=== PATIENT | female | born 1945 | race Caucasian/White ===

== ENCOUNTER 2018-12-29 15:24 | Inpatient (IN) | payer OTHER ==
[2018-12-29] MEDS ORDERED: ASPIRIN 81 MG CHEWABLE TABLETS PO ONE (15:47)
--- NOTE | 2018-12-29 16:05 | PDOC ---
History of Present Illness - General Chief Complaint: Shortness of Breath Stated Complaint: BREATHING TROUBLE Time Seen by Provider: 12/29/18 15:44 - History of Present Illness Initial Comments: 12/29/18 16:07 The patient is a 73 year old female with a history of HTN, HLD, DM, Ovarian CA who presents for evaluation of shortness of breath. The patient is accompanied by family who assists in providing the history. They note that the patient has been experiencing a 1 month history of worsening shortness of breath. They noted that patient acutely worsened over the past 5 days with an associated productive cough prompting her presentation to the ED for further evaluation. They note that the patient also has a wound to her left lower extremity that has been draining purulent fluid as well. They reports subjective fevers at home but otherwise denies chest pain, nausea, vomiting, abdominal pain, or changes with urination or bowel movements. Past History - Past Medical History Allergies/Adverse Reactions: Allergies Allergy/AdvReac Type Severity Reaction Status Date / Time codeine [Codeine] Allergy Verified 10/01/12 12:47 iodine Allergy Verified 10/01/12 12:47 Home Medications: Ambulatory Orders Aspirin Coated [Ecotrin -] 81 mg PO DAILY 09/30/12 Fluoxetine HCl [Prozac -] 10 mg PO DAILY 09/30/12 Glipizide [Glipizide ER] 10 mg PO BID 09/30/12 Hydrochlorothiazide [Hctz -] 25 mg PO DAILY 09/30/12 Labetalol HCl 200 mg PO BID 09/30/12 Rosuvastatin Calcium [Crestor] 10 mg PO DAILY 09/30/12 metFORMIN HCL [Glucophage -] 500 mg PO BID 09/30/12 Anemia: No Asthma: Yes Cancer: Yes (ovarian) Cardiac Disorders: No CVA: No COPD: No CHF: No Dementia: No Diabetes: Yes GI Disorders: No Disorders: No HTN: Yes Hypercholesterolemia: Yes Liver Disease: No Seizures: No Thyroid Disease: No - Surgical History Abdominal Surgery: No Appendectomy: No Cardiac Surgery: No Cholecystectomy: Yes Lung Surgery: No Neurologic Surgery: No Orthopedic Surgery: No - Suicide/Smoking/Psychosocial Hx Smoking History: Never smoked Have you smoked in the past 12 months: No Information on smoking cessation initiated: No Hx Alcohol Use: No Drug/Substance Use Hx: No Substance Use Type: None Hx Substance Use Treatment: No Review of Systems - Review of Systems Comments:: 12/29/18 16:19 Constitutional: fevers, No chills, fatigue, malaise HEENT: No Rhinorrhea, nasal congestion, visual changes Cardiovascular: No chest pain, syncope, palpitations, lightheadedness Respiratory: Productive Cough, SOB, No Hemoptysis, Gastrointestinal: No Abdominal pain, Nausea, Vomiting, Constipation, Diarrhea, Melena Genitourinary: No Dysuria, Frequency, Urgency, Hesitancy, Hematuria, Flank pain Musculoskeletal: No Myalgia, arthralgia Skin: Left lower extremity wound. No rashes, itching, bruising, pallor Neurologic: No Headache, Dizziness, Numbness, Weakness, or Tingling Psychiatric: No Hallucinations. No SI or HI *Physical Exam - Vital Signs Last Vital Signs Temp Pulse Resp BP Pulse Ox 98.5 F 138 H 18 178/69 H 85 L 12/29/18 15:45 12/29/18 15:45 12/29/18 15:45 12/29/18 15:45 12/29/18 15:45 - Physical Exam Comments: 12/29/18 16:20 General Appearance: Nourished. No Apparent Distress HEENT: EOMI, GENIE. No Pharyngeal Erythema, Tonsillar Exudate, Tonsillar Erythema Neck: No Cervical Lymphadenopathy Respiratory/Chest: Crackles at the left lung base auscultated on exam. No Wheezing Cardiovascular: Regular Rhythm, Regular Rate. No Murmur, Gallops, Rubs Gastrointestinal/Abdominal: Normal Bowel Sounds, Soft. No Guarding, Rebound, Tenderness Musculoskeletal: No CVA Tenderness Extremity: 2+ edema to the lower extremities bilaterally. Wound to the posterior aspect of the left ankle with some purulent discharge. Normal Capillary Refill Integumentary: Normal Color, Dry, Warm Neurologic: Fully Oriented, Alert, Normal Mood/Affect, Normal Response, ED Treatment Course - LABORATORY CBC & Chemistry Diagram: 12/29/18 16:02 12/29/18 16:02 Medical Decision Making - Medical Decision Making 12/29/18 16:24 The patient is a 73 year old female with a history of HTN, HLD, DM, Ovarian CA who presents for evaluation of shortness of breath. Differential includes but is not limited to: Pneumonia, Sepsis, Wound infection, ACS, Infectious, Metabolic Derangement. Given the patient's history and physical exam, we will obtain a cbc, cmp, troponin, lactate, blood cultures, ua, ekg, chest plain film to evaluate further. We will continue to monitor and reassess while here in the ED. 12/29/18 17:35 CBC is unremarkable. CMP demonstrates a glucose of 400. Lactate is 2.9. Troponin is unremarkable. BNP is 300. Chest plain film demonstrates acute pulmonary edema with congestive features as read by our radiologist. We will treat the patient with lasix as she appears clinically fluid overloaded. We will obtain a chest CTA to evaluate further for PE and pulmonary edema. We discussed the case with Dr. Hardy who accepted the patient for admission. Per the patient and her family, the patient refuses treatment with insulin. We will treat the patient with her night doses for metformin and glipazide for her hyperglycemia. 12/29/18 18:39 Patient has an allergy to iodine and is unable to undergo chest CTA. Will change the order to a non-contrast CT and defer to the inpatient team regarding further work up for PE. *DC/Admit/Observation/Transfer Diagnosis at time of Disposition: Shortness of breath, Tachycardia Pulmonary edema Qualifiers: Chronicity: acute Qualified Code(s): J81.0 - Acute pulmonary edema - Discharge Dispostion Condition at time of disposition: Stable Decision to Admit order: Yes - Referrals - Patient Instructions - Post Discharge Activity
[2018-12-29 16:11] LABS: BASO % 0.8 % (0-2.0); HEMATOCRIT 38.6 % (32.4-45.2); HEMOGLOBIN 12.8 GM/dL (10.7-15.3); LYMPH % 6.1 % (8-40); MCH 28.2 pg (25.7-33.7); MCHC 33.1 g/dl (32.0-36.0); MEAN CELL VOLUME 85.1 fl (80-96); MONO % 3.2 % (3.8-10.2); NEUT % 88.9 % (42.8-82.8); PLATELET COUNT 152 K/MM3 (134-434); RBC 4.54 M/mm3 (3.60-5.2); RDW 14.6 % (11.6-15.6); WHITE BLOOD COUNT 8.3 K/mm3 (4.0-10.0)
[2018-12-29 16:24] LABS: INR 1.02 (0.83-1.09)
[2018-12-29] MEDS ORDERED: FUROSEMIDE 40 MG/4 ML INJECTABLE VIAL IVPUSH ONE (16:44)
[2018-12-29 17:07] LABS: ALBUMIN 3.7 g/dl (3.4-5.0); ALK PHOS 107 U/L (45-117); ANION GAP 8 MMOL/L (8-16); BILIRUBIN,TOTAL 0.8 mg/dL (0.2-1); BLOOD UREA NITROGEN 19 mg/dL (7-18); CALCIUM 8.9 mg/dL (8.5-10.1); CHLORIDE 104 mmol/L (98-107); CO2 28 mmol/L (21-32); MAGNESIUM 1.4 mg/dL (1.8-2.4); N-TERMINAL BNP 353.9 pg/ml (5-125); POTASSIUM 3.8 mmol/L (3.5-5.1); SGOT/AST 15 U/L (15-37); SGPT/ALT 19 U/L (13-61); SODIUM 141 mmol/L (136-145); TOT PROT 6.8 g/dl (6.4-8.2)
[2018-12-29] MEDS ORDERED: FUROSEMIDE 40 MG/4 ML INJECTABLE VIAL ONE (17:15)
[2018-12-29 17:20] LABS: GLUCOSE,RANDOM 404 mg/dL (74-106)
[2018-12-29] MEDS ORDERED: glipiZIDE 10 MG TABLET (FP) PO ONE (17:27)
[2018-12-29] MEDS ORDERED: metFORMIN HCL 500 MG TABLET (FP) PO ONE (17:27)
--- NOTE | 2018-12-29 17:32 | PDOC ---
Documentation entered by Gabriella Resendiz SCRIBE, acting as scribe for Elvira Chacon MD. Elvira Chacon MD: This documentation has been prepared by the Martín tinsley Amanda, SCRIBE, under my direction and personally reviewed by me in its entirety. I confirm that the documentation accurately reflects all work, treatment, procedures, and medical decision making performed by me. Attending Attestation - Resident Resident Name: Dillan Gatyan - ED Attending Attestation I have performed the following: I have examined & evaluated the patient, The case was reviewed & discussed with the resident, I agree w/resident's findings & plan, Exceptions are as noted - HPI HPI: 12/29/18 17:12 The patient is a 73 year old female with a significant past medical history of HTN, HLD, DM, Ovarian CA who presents for evaluation of shortness of breath over the past 5 days with an associated productive cough and subjective fevers. The family at bedside reports that the patient also has a wound to her left lower extremity that has been draining purulent fluid. The patient denies chest pain, nausea, vomiting, abdominal pain, or changes with urination or bowel movements. - Physicial Exam PE: 12/29/18 17:14 GENERAL: The patient is in no acute distress. HEAD: Normal with no signs of trauma. EYES: PERRLA, EOMI, sclera anicteric, conjunctiva clear. ENT: Ears normal, nares patent, oropharynx clear without exudates. Moist mucous membranes. NECK: Normal range of motion, supple without lymphadenopathy, JVD, or masses. LUNGS: (+)Crackles at the left lung base. Breath sounds equal, No wheezes, HEART:Regular rate and rhythm, normal S1 and S2 without murmur, rub or gallop. ABDOMEN: Soft, nontender, normoactive bowel sounds. No guarding, no rebound. No masses palpable. EXTREMITIES: (+) 2+ edema to the lower extremities bilaterally. Normal range of motion, No clubbing or cyanosis. No erythema, or tenderness. NEUROLOGICAL: Cranial nerves II through XII grossly intact. Normal speech. No focal neurological deficits. MUSCULOSKELETAL: Back non-tender to palpation, no CVA tenderness SKIN: (+) Wound to the posterior aspect of the left ankle with some purulent discharge. Warm, Dry, normal turgor, no rashes or lesions noted. - Medical Decision Making 12/29/18 16:57 This is a 73 yo F h/o HTN, HLD, DM, morbid obesity who presents to the ER with a complaint of shortness of breath Pt son states she has been short of breath for the past 2 months This has been progressively worsening Pt told her son today that her shortness of breath was now SEVERE and requested to come to the hospital No fevers (+ chills (+) cough with no sputum production Bilateral lower extremity edema Pt unable to ambulate in the home, limited by shortness of breath Laboratory Tests 12/29/18 12/29/18 12/29/18 16:02 16:02 16:02 WBC 8.3 Hgb 12.8 Hct 38.6 Plt Count 152 PT with INR 12.00 INR 1.02 PTT (Actin FS) 33.2 CXR: Cardiomegaly, fluid overloading noted 12/29/18 17:27 Laboratory Tests 12/29/18 12/29/18 16:02 16:14 Sodium 141 Potassium 3.8 Chloride 104 Carbon Dioxide 28 BUN 19 H Creatinine 1.0 Random Glucose 404 H* Lactic Acid 2.9 H* Creatine Kinase 75 Troponin I 0.02 B-Natriuretic Peptide 353.9 H CXR demonstrates fluid overloading Pt labs reflect hyperglycemia, can not give IVF Will do CTA chest to r/o PE and eval for subtle infiltrate 12/29/18 17:32 Repeat EKG: ST rate of 118 bpm, axis nml, intervals nml, no st elevation or depression, t waves upright Admitted to Dr Hardy's service Unable to do CT given iodine allergy Will do CT without contrast
[2018-12-29] MEDS ORDERED: glipiZIDE 5 MG TABLET (FP) ONE (18:06)
[2018-12-29] MEDS ORDERED: metFORMIN HCL 500 MG TABLET (FP) ONE (18:07)
--- NOTE | 2018-12-29 19:38 | HP ---
Admitting History and Physical - Primary Care Physician PCP: Radha Hardy - Admission History of Present Illness: 73 year old female with a history of HTN, HLD, DM, Ovarian CA who presents for evaluation of shortness of breath. The patient is accompanied by family who assists in providing the history. They note that the patient has been experiencing a 1 month history of worsening shortness of breath. They noted that patient acutely worsened over the past 5 days with an associated productive cough prompting her presentation to the ED for further evaluation. They note that the patient also has a wound to her left lower extremity that has been draining purulent fluid as well. They reports subjective fevers at home but otherwise denies chest pain, nausea, vomiting, abdominal pain, or changes with urination or bowel movements. - Past Medical History Cardiovascular: Yes: HTN, Hyperlipdemia Heme/Onc: Yes: Other (ovarian ca) Endocrine: Yes: Diabetes Mellitus - Smoking History Smoking history: Never smoked Have you smoked in the past 12 months: No - Alcohol/Substance Use Hx Alcohol Use: No Home Medications - Allergies Allergies/Adverse Reactions: Allergies Allergy/AdvReac Type Severity Reaction Status Date / Time codeine [Codeine] Allergy Verified 10/01/12 12:47 iodine Allergy Verified 10/01/12 12:47 - Home Medications Home Medications: Ambulatory Orders Aspirin Coated [Ecotrin -] 81 mg PO DAILY 09/30/12 Fluoxetine HCl [Prozac -] 10 mg PO DAILY 09/30/12 Glipizide [Glipizide ER] 10 mg PO BID 09/30/12 Hydrochlorothiazide [Hctz -] 25 mg PO DAILY 09/30/12 Labetalol HCl 200 mg PO BID 09/30/12 Rosuvastatin Calcium [Crestor] 10 mg PO DAILY 09/30/12 metFORMIN HCL [Glucophage -] 500 mg PO BID 09/30/12 Physical Examination Vital Signs: Vital Signs Temperature 98.5 F 12/29/18 15:45 Pulse Rate 110 H 12/29/18 15:47 Respiratory Rate 18 12/29/18 15:45 Blood Pressure 178/69 H 12/29/18 15:45 O2 Sat by Pulse Oximetry (%) 98 12/29/18 18:46 Constitutional: Yes: No Distress HENT: Yes: Atraumatic Neck: Yes: Supple Cardiovascular: Yes: Regular Rate and Rhythm Respiratory: Yes: Rhonchi Gastrointestinal: Yes: Normal Bowel Sounds Extremities: Yes: Other (llex warm and red) Edema: Yes Edema: LUE: 1+, RUE: 1+ Neurological: Yes: Alert, Oriented Labs: CBC, BMP 12/29/18 16:02 12/29/18 16:02 Imaging - Results X-ray: Report Reviewed Ultrasound: Report Reviewed Problem List - Problems (1) HTN (hypertension) Assessment/Plan: monitor continue home meds Code(s): I10 - ESSENTIAL (PRIMARY) HYPERTENSION Qualifiers: Hypertension type: essential hypertension Qualified Code(s): I10 - Essential (primary) hypertension (2) Diabetes Assessment/Plan: bgms home meds Code(s): E11.9 - TYPE 2 DIABETES MELLITUS WITHOUT COMPLICATIONS Qualifiers: Diabetes mellitus type: type 2 (3) Pulmonary edema Assessment/Plan: iv lasix Code(s): J81.1 - CHRONIC PULMONARY EDEMA Qualifiers: Chronicity: acute Qualified Code(s): J81.0 - Acute pulmonary edema (4) Shortness of breath Assessment/Plan: iv lasix duo nebs Code(s): R06.02 - SHORTNESS OF BREATH (5) Cellulitis Assessment/Plan: left leg no dvt on iv abx Code(s): L03.90 - CELLULITIS, UNSPECIFIED Assessment/Plan Laboratory Tests 12/29/18 12/29/18 12/29/18 16:02 16:02 16:02 WBC 8.3 RBC 4.54 Hgb 12.8 Hct 38.6 MCV 85.1 MCH 28.2 MCHC 33.1 RDW 14.6 Plt Count 152 MPV 10.0 Absolute Neuts (auto) 7.4 Neutrophils % 88.9 H Lymphocytes % 6.1 L Monocytes % 3.2 L Eosinophils % 1.0 Basophils % 0.8 Nucleated RBC % 0 PT with INR 12.00 INR 1.02 PTT (Actin FS) Sodium 141 Potassium 3.8 Chloride 104 Carbon Dioxide 28 Anion Gap 8 BUN 19 H Creatinine 1.0 Creat Clearance w eGFR 54.50 Random Glucose 404 H* Lactic Acid Calcium 8.9 Magnesium 1.4 L Total Bilirubin 0.8 AST 15 ALT 19 Alkaline Phosphatase 107 Creatine Kinase 75 Troponin I 0.02 B-Natriuretic Peptide 353.9 H Total Protein 6.8 Albumin 3.7 12/29/18 12/29/18 16:02 16:14 WBC RBC Hgb Hct MCV MCH MCHC RDW Plt Count MPV Absolute Neuts (auto) Neutrophils % Lymphocytes % Monocytes % Eosinophils % Basophils % Nucleated RBC % PT with INR INR PTT (Actin FS) 33.2 Sodium Potassium Chloride Carbon Dioxide Anion Gap BUN Creatinine Creat Clearance w eGFR Random Glucose Lactic Acid 2.9 H* Calcium Magnesium Total Bilirubin AST ALT Alkaline Phosphatase Creatine Kinase Troponin I B-Natriuretic Peptide Total Protein Albumin Active Medications Generic Name Dose Route Start Last Admin Trade Name Argelia PRN Reason Stop Dose Admin Albuterol/Ipratropium 1 amp 12/30/18 00:03 12/30/18 07:24 Duoneb - NEB 1 amp Q6H PRN Administration SHORTNESS OF BREATH Aspirin 81 mg 12/30/18 10:00 12/30/18 09:44 Ecotrin - PO 81 mg DAILY ALLEY Administration Carvedilol 6.25 mg 12/30/18 10:00 12/30/18 13:00 Coreg - PO 6.25 mg BID ALLEY Administration Fluoxetine HCl 10 mg 12/30/18 10:00 12/30/18 13:00 Prozac - PO 10 mg DAILY ALLEY Administration Furosemide 40 mg 12/30/18 14:00 12/30/18 13:00 Lasix Injection - IVPUSH 40 mg BID@0600,1400 ALLEY Administration Glipizide 10 mg 12/30/18 07:00 12/30/18 17:34 Glucotrol Xl - PO 10 mg BIDI ALLEY Administration Heparin Sodium (Porcine) 5,000 unit 12/29/18 22:00 12/30/18 09:44 Heparin - SQ 5,000 unit BID ALLEY Administration Piperacillin Sod/Tazobactam 50 mls @ 100 mls/hr 12/30/18 12:45 12/30/18 13:33 Sod 3.375 gm/ Dextrose IVPB 100 mls/hr Q8H-IV ALLEY Administration Protocol Losartan Potassium 25 mg 12/30/18 10:00 12/30/18 13:00 Cozaar - PO 25 mg DAILY ALLEY Administration Metformin HCl 500 mg 12/30/18 07:00 12/30/18 17:34 Glucophage - PO 500 mg BIDAC ALLEY Administration Rosuvastatin Calcium 10 mg 12/30/18 10:00 12/30/18 09:44 Crestor - PO 10 mg DAILY ALLEY Administration
[2018-12-29] MEDS: HEPARIN NA (PORCINE) 5,000 UNITS/ML 1ML VIAL SQ SCH (22:10)
[2018-12-30] MEDS: ALBUTEROL SO4 2.5/IPRATROPIUM 0.5 INH SOL 3 ML VIAL.NEB. NEB PRN ×2 (00:30→07:24)
[2018-12-30 06:47] LABS: BASO % 0.8 % (0-2.0); EOS % 1.5 % (0-4.5); HEMATOCRIT 41.6 % (32.4-45.2); HEMOGLOBIN 13.7 GM/dL (10.7-15.3); MCHC 32.9 g/dl (32.0-36.0); MEAN CELL VOLUME 84.9 fl (80-96); MEAN PLT VOLUME 10.3 fl (7.5-11.1); MONO % 4.5 % (3.8-10.2); NEUT % 76.2 % (42.8-82.8); PLATELET COUNT 172 K/MM3 (134-434); RBC 4.91 M/mm3 (3.60-5.2); RDW 14.8 % (11.6-15.6); WHITE BLOOD COUNT 9.6 K/mm3 (4.0-10.0)
[2018-12-30] MEDS: metFORMIN HCL 500 MG TABLET (FP) PO SCH ×2 (06:49→17:34)
[2018-12-30] MEDS: glipiZIDE-XL 10 MG TAB.ER.24 (FP) PO SCH ×2 (06:55→17:34)
[2018-12-30 07:19] LABS: ALBUMIN 3.9 g/dl (3.4-5.0); ALK PHOS 105 U/L (45-117); ANION GAP 6 MMOL/L (8-16); BILIRUBIN,TOTAL 0.8 mg/dL (0.2-1); BLOOD UREA NITROGEN 16 mg/dL (7-18); CALCIUM 9.3 mg/dL (8.5-10.1); CHLORIDE 104 mmol/L (98-107); CO2 30 mmol/L (21-32); CREATININE 0.8 mg/dL (0.55-1.3); GLUCOSE,RANDOM 228 mg/dL (74-106); POTASSIUM 3.5 mmol/L (3.5-5.1); SGOT/AST 17 U/L (15-37); SGPT/ALT 21 U/L (13-61); SODIUM 139 mmol/L (136-145); TOT PROT 7.3 g/dl (6.4-8.2)
[2018-12-30] MEDS ORDERED: PT OWN MED DRAWER 7, Y5N ONE ×3 (08:47→17:30)
--- NOTE | 2018-12-30 09:20 | CON.CARD ---
Consult Consult Specialty:: Cardiology Referred by:: Radha Hardy MD Reason for Consultation:: CHF - History of Present Illness Chief Complaint: Dyspnea History of Present Illness: 73 year old female with a history of HTN, HLD, DM, Ovarian CA who presents for evaluation of 1 month of progressive shortness of breath with associated productive cough and orthopnea. They note that the patient also has a wound to her left lower extremity that has been draining purulent fluid as well. They reports subjective fevers at home but otherwise denies chest pain, near or true syncope, palpitations, worsening LE edema. - History Source History Provided By: Medical Record Limitations to Obtaining History: Language Barrier - Past Medical History Cardio/Vascular: Yes: HTN, Hyperlipdemia ...: No Endocrine: Yes: Diabetes Mellitus - Alcohol/Substance Use Hx Alcohol Use: No - Smoking History Smoking history: Never smoked Have you smoked in the past 12 months: No Home Medications - Allergies Allergies/Adverse Reactions: Allergies Allergy/AdvReac Type Severity Reaction Status Date / Time codeine [Codeine] Allergy Verified 10/01/12 12:47 iodine Allergy Verified 10/01/12 12:47 - Home Medications Home Medications: Ambulatory Orders Aspirin Coated [Ecotrin -] 81 mg PO DAILY 09/30/12 Fluoxetine HCl [Prozac -] 10 mg PO DAILY 09/30/12 Glipizide [Glipizide ER] 10 mg PO BID 09/30/12 Hydrochlorothiazide [Hctz -] 25 mg PO DAILY 09/30/12 Labetalol HCl 200 mg PO BID 09/30/12 Rosuvastatin Calcium [Crestor] 10 mg PO DAILY 09/30/12 metFORMIN HCL [Glucophage -] 500 mg PO BID 09/30/12 Review of Systems - Review of Systems Cardiovascular: reports: Edema Respiratory: reports: Orthopnea, SOB, SOB on Exertion Integumentary: reports: Blister, Erythema Vital Signs: Vital Signs Temperature 97.6 F 12/30/18 06:00 Pulse Rate 103 H 12/30/18 06:00 Respiratory Rate 20 12/30/18 06:00 Blood Pressure 152/92 12/30/18 06:00 O2 Sat by Pulse Oximetry (%) 99 12/29/18 22:27 Constitutional: Yes: No Distress, Calm Neck: Yes: Supple Respiratory: Yes: Regular, Diminished, On Nasal O2 Gastrointestinal: Yes: Soft, Abdomen, Obese, Hypoactive Bowel Sounds Cardiovascular: Yes: Regular Rate and Rhythm JVD: No Carotid Bruit: No Heart Sounds: Yes: S1, S2 Murmur: Yes: Systolic Murmur, Grade 1 Extremities: Yes: Erythema (LLE) Edema: Yes Edema: LLE: 2+, RLE: 2+ Integumentary: Yes: Erythema - Other Data Labs, Other Data: CBC, BMP 12/30/18 05:30 12/30/18 05:30 INR, PTT INR 1.02 (0.83-1.09) 12/29/18 16:02 Troponin, BNP 12/29/18 12/29/18 16:02 20:00 Troponin I 0.02 0.06 H B-Natriuretic Peptide 353.9 H Troponin, BNP 12/29/18 12/29/18 16:02 20:00 Troponin I 0.02 0.06 H B-Natriuretic Peptide 353.9 H SVT @ 143 Imaging - Results Chest X-ray: Report Reviewed (Congestion) Cat Scan: Report Reviewed (Bilateral ground glass c/w congestion) Problem List - Problems (1) Diabetes Code(s): E11.9 - TYPE 2 DIABETES MELLITUS WITHOUT COMPLICATIONS Qualifiers: Diabetes mellitus type: type 2 (2) HTN (hypertension) Code(s): I10 - ESSENTIAL (PRIMARY) HYPERTENSION Qualifiers: Hypertension type: essential hypertension Qualified Code(s): I10 - Essential (primary) hypertension (3) Pulmonary edema Code(s): J81.1 - CHRONIC PULMONARY EDEMA Qualifiers: Chronicity: acute Qualified Code(s): J81.0 - Acute pulmonary edema (4) Shortness of breath Code(s): R06.02 - SHORTNESS OF BREATH (5) Tachycardia Code(s): R00.0 - TACHYCARDIA, UNSPECIFIED Assessment/Plan 1. Acute on chronic diastolic heart failure with pulmonary edema 2. Hypertensive cardiomyopathy 3. Type 2 DM 4. Hyperlipidemia 5. LLE cellulitis 6. PSVT->NSR 7. Demand ischemia P:1. IV diuresis with monitor diuretic response, renal fxn and electrolytes 2. Continue ASA 81 qd, carvedilol 6.25 bid, Crestor 10 qd, add losartan 25 qd 3. Check echocardiogram, TSH, Ha1c, fasting lipid panel, recheck ECG, trend trops 4. Abx course for LLE cellulitis 5. Thank you for consultative opportunity
[2018-12-30] MEDS: ROSUVASTATIN CA 10 MG TABLET (FP) PO SCH (09:44)
[2018-12-30] MEDS: HEPARIN NA (PORCINE) 5,000 UNITS/ML 1ML VIAL SQ SCH ×2 (09:44→21:02)
[2018-12-30] MEDS: ASPIRIN COATED 81 MG TABLET.EC PO SCH (09:44)
[2018-12-30] MEDS ORDERED: LOSARTAN POTASSIUM 50 MG TABLET (FP) PO SCH (10:00)
[2018-12-30] MEDS ORDERED: HYDROCHLOROTHIAZIDE 25 MG TABLET (FP) PO SCH (10:00)
--- NOTE | 2018-12-30 12:13 | EKG ---
Test Reason : Blood Pressure : / mmHG Vent. Rate : 113 BPM Atrial Rate : 113 BPM P-R Int : 124 ms QRS Dur : 088 ms QT Int : 344 ms P-R-T Axes : 038 014 077 degrees QTc Int : 471 ms SINUS TACHYCARDIA OTHERWISE NORMAL ECG WHEN COMPARED WITH ECG OF 29-DEC-2018 16:58, NONSPECIFIC T WAVE ABNORMALITY NO LONGER EVIDENT IN INFERIOR LEADS NONSPECIFIC T WAVE ABNORMALITY, IMPROVED IN LATERAL LEADS Confirmed by MIRANDA MARSHALL, JACK ([id number]) on 12/30/2018 12:13:36 PM [facility] By[facility] Confirmed By:JACK JEAN MD
--- NOTE | 2018-12-30 12:16 | EKG ---
Test Reason : Blood Pressure : / mmHG Vent. Rate : 118 BPM Atrial Rate : 118 BPM P-R Int : 132 ms QRS Dur : 086 ms QT Int : 336 ms P-R-T Axes : 056 045 106 degrees QTc Int : 470 ms SINUS TACHYCARDIA NONSPECIFIC T WAVE ABNORMALITY ABNORMAL ECG NO PREVIOUS ECGS AVAILABLE Confirmed by JACK JEAN MD ([id number]) on 12/30/2018 12:15:32 PM Referred By: Confirmed By:JACK JEAN MD
--- NOTE | 2018-12-30 12:20 | CON.ID ---
Consult Consult Specialty:: infectious diseases Referred by:: Reason for Consultation:: left lower leg cellulitis with drainaing wound - History of Present Illness Chief Complaint: not feeling well History of Present Illness: 73 year old female with a history of HTN, HLD, DM, Ovarian CA who presents for evaluation of 1 month of progressive shortness of breath with associated productive cough and orthopnea. patient mentions that she has not been feeling well of lately patient complaints of subjective fevers at home also she mentions that her leg is swollen - History Source History Provided By: Patient, Medical Record Limitations to Obtaining History: Language Barrier - Past Medical History Cardio/Vascular: Yes: HTN, Hyperlipdemia ...: No Endocrine: Yes: Diabetes Mellitus - Alcohol/Substance Use Hx Alcohol Use: No - Smoking History Smoking history: Never smoked Have you smoked in the past 12 months: No Home Medications - Allergies Allergies/Adverse Reactions: Allergies Allergy/AdvReac Type Severity Reaction Status Date / Time codeine [Codeine] Allergy Verified 10/01/12 12:47 iodine Allergy Verified 10/01/12 12:47 - Home Medications Home Medications: Ambulatory Orders Aspirin Coated [Ecotrin -] 81 mg PO DAILY 09/30/12 Fluoxetine HCl [Prozac -] 10 mg PO DAILY 09/30/12 Glipizide [Glipizide ER] 10 mg PO BID 09/30/12 Hydrochlorothiazide [Hctz -] 25 mg PO DAILY 09/30/12 Labetalol HCl 200 mg PO BID 09/30/12 Rosuvastatin Calcium [Crestor] 10 mg PO DAILY 09/30/12 metFORMIN HCL [Glucophage -] 500 mg PO BID 09/30/12 Review of Systems - Review of Systems Constitutional: reports: Fever Eyes: reports: No Symptoms HENT: reports: No Symptoms Neck: reports: No Symptoms Cardiovascular: reports: No Symptoms Respiratory: reports: SOB, SOB on Exertion Gastrointestinal: reports: No Symptoms Genitourinary: reports: No Symptoms Musculoskeletal: reports: No Symptoms Integumentary: reports: Change in Color, Erythema (of the left lowwer leg), Wound (draining on the left lower leg) Neurological: reports: No Symptoms Endocrine: reports: No Symptoms Hematology/Lymphatic: reports: No Symptoms Psychiatric: reports: No Symptoms Physical Exam Vital Signs: Vital Signs Temperature 97.8 F 12/30/18 09:00 Pulse Rate 99 H 12/30/18 09:00 Respiratory Rate 18 12/30/18 09:00 Blood Pressure 156/66 12/30/18 09:00 O2 Sat by Pulse Oximetry (%) 97 12/30/18 09:00 Constitutional: Yes: Calm, Mild Distress Neck: Yes: Supple, Trachea Midline Cardiovascular: Yes: S1, S2 Respiratory: Yes: Regular, CTA Bilaterally Gastrointestinal: Yes: Normal Bowel Sounds, Soft Musculoskeletal: Yes: WNL Extremities: Yes: Erythema (left post lower ext), Other (drainang wound left lower ext) Integumentary: Yes: Erythema (left lower ext) Wound/Incision: Yes: Draining (purulent from the left lower ext) Neurological: Yes: Alert, Oriented Psychiatric: Yes: Alert, Oriented Labs: CBC, BMP 12/30/18 05:30 12/30/18 05:30 Imaging - Results Chest X-ray: Report Reviewed, Image Reviewed Cat Scan: Report Reviewed, Image Reviewed Assessment/Plan Problem List - Problems (1) Diabetes Code(s): E11.9 - TYPE 2 DIABETES MELLITUS WITHOUT COMPLICATIONS Qualifiers: Diabetes mellitus type: type 2 (2) HTN (hypertension) Code(s): I10 - ESSENTIAL (PRIMARY) HYPERTENSION Qualifiers: Hypertension type: essential hypertension Qualified Code(s): I10 - Essential (primary) hypertension (3) Pulmonary edema Code(s): J81.1 - CHRONIC PULMONARY EDEMA Qualifiers: Chronicity: acute Qualified Code(s): J81.0 - Acute pulmonary edema (4) Shortness of breath Code(s): R06.02 - SHORTNESS OF BREATH (5) Tachycardia Code(s): R00.0 - TACHYCARDIA, UNSPECIFIED left leg cellulitis infected wound left leg plan will send cx on the leg ordered a ct scan of the leg abx started rest as per the team
[2018-12-30] MEDS ORDERED: DEXTROSE 5%-WATER - 50 ML IVPB ONE ×2 (12:46→17:29)
[2018-12-30] MEDS ORDERED: PIPERACILLIN/TAZOBACTAM 3.375 GM VIAL IVPB ONE ×2 (12:46→17:28)
[2018-12-30] MEDS: FUROSEMIDE 40 MG/4 ML INJECTABLE VIAL IVPUSH SCH (13:00)
[2018-12-30] MEDS: CARVEDILOL 6.25 MG TABLET (FP) PO SCH ×2 (13:00→21:02)
[2018-12-30] MEDS: FLUoxetine HCL 10 MG CAPSULE (FP) PO SCH (13:00)
[2018-12-30] MEDS: LOSARTAN POTASSIUM 25 MG TABLET PO SCH (13:00)
--- NOTE | 2018-12-30 13:02 | ECHO ---
Name: KATHY BLACK Exam:Adult Echocardiogram Study Date: 12/30/2018 09:58 AM Age: 73 yrs Reason For Study: CHF Height: 62 in Weight: 236 lb BSA: 2.1 m2 MMode/2D Measurements & Calculations IVSd: 1.1 cm Ao root diam: 2.4 cm LVIDd: 5.1 cm LA dimension: 4.7 cm LVIDs: 3.5 cm LVPWd: 1.1 cm EDV(Teich): 121.8 ml LVOT diam: 2.1 cm ESV(Teich): 50.9 ml Doppler Measurements & Calculations MV E max gilberto: 132.0 cm/sec Ao V2 max: 232.3 cm/sec MV A max gilberto: 109.2 cm/sec Ao max P.6 mmHg MV E/A: 1.2 Ao V2 mean: 190.4 cm/sec MV dec time: 0.27 sec Ao mean P.5 mmHg Ao V2 VTI: 51.0 cm ELADIO(I,D): 1.2 cm2 ELADIO(V,D): 1.2 cm2 LV V1 max P.8 mmHg MR max gilberto: 591.2 cm/sec LV V1 mean P.2 mmHg MR max P.8 mmHg LV V1 max: 83.3 cm/sec LV V1 mean: 51.4 cm/sec LV V1 VTI: 18.8 cm SV(LVOT): 63.6 ml TR max gilberto: 302.8 cm/sec TR max P.9 mmHg Med Peak E' Gilberto: 5.6 cm/sec Med E/e': 23.7 Lat Peak E' Gilberto: 6.6 cm/sec Lat E/e': 20.0 Procedure A complete two-dimensional transthoracic echocardiogram was performed (2D, M-mode, Doppler and color flow Doppler). Left Ventricle The left ventricular size, thickness and function are normal. The left ventricular ejection fraction is normal. Ejection Fraction = 55-60%. The left ventricular wall motion is normal. Right Ventricle The right ventricle is normal in size and function. Atria The left atrium is mildly dilated. Right atrial size is normal. Mitral Valve There is mild mitral annular calcification. There is mild mitral regurgitation. Tricuspid Valve There is mild tricuspid regurgitation. There was insufficient TR detected to calculate RV systolic pr essure. Aortic Valve Mild valvular aortic stenosis. No aortic regurgitation is present. Pulmonic Valve There is no pulmonic valvular regurgitation. Great Vessels The aortic root is normal size. Pericardium/Pleura There is no pericardial effusion. Interpretation Summary The left ventricular size, thickness and function are normal The right ventricle is normal in size and function. The left atrium is mildly dilated. There is mild mitral regurgitation. There is mild tricuspid regurgitation. Mild valvular aortic stenosis. MD Berto Lara 12/30/2018 01:01 PM
--- NOTE | 2018-12-30 13:31 | CON.PULM ---
Consult Consult Specialty:: PULM/CCM Referred by:: DARRELL Reason for Consultation:: SOB - History of Present Illness Chief Complaint: SOB History of Present Illness: 73 F, HTN, HLD, DM, and Ovarian CA. (+) snoring history and symptomatology concerning for OSAS. Admitted via the ER due to 1 month of progressive shortness of breath with associated cough and orthopnea. She also reports a wound to her left lower extremity that has been draining purulent fluid. (+) subjective fevers but no chills. No hemoptysis or night sweats. CT: Findings consistent with pulmonary vascular congestion / non-specific mild enlargement of mediastinal lymph nodes - History Source History Provided By: Patient Limitations to Obtaining History: No Limitations - Past Medical History Cardio/Vascular: Yes: HTN, Hyperlipdemia Pulmonary: Yes: Bronchitis. No: Asthma, Cancer, COPD, O2 Dependent, Pneumonia, Previously Intubated, Pulmonary Embolus, Pulmonary Fibrosis ...: No Endocrine: Yes: Diabetes Mellitus - Alcohol/Substance Use Hx Alcohol Use: No - Smoking History Smoking history: Never smoked Have you smoked in the past 12 months: No Home Medications - Allergies Allergies/Adverse Reactions: Allergies Allergy/AdvReac Type Severity Reaction Status Date / Time codeine [Codeine] Allergy Verified 10/01/12 12:47 iodine Allergy Verified 10/01/12 12:47 - Home Medications Home Medications: Ambulatory Orders Aspirin Coated [Ecotrin -] 81 mg PO DAILY 09/30/12 Fluoxetine HCl [Prozac -] 10 mg PO DAILY 09/30/12 Glipizide [Glipizide ER] 10 mg PO BID 09/30/12 Hydrochlorothiazide [Hctz -] 25 mg PO DAILY 09/30/12 Labetalol HCl 200 mg PO BID 09/30/12 Rosuvastatin Calcium [Crestor] 10 mg PO DAILY 09/30/12 metFORMIN HCL [Glucophage -] 500 mg PO BID 09/30/12 Review of Systems - Review of Systems Constitutional: reports: Fever, Malaise. denies: Chills, Loss of Appetite, Night Sweats, Unintentional Wgt. Loss Eyes: reports: No Symptoms HENT: reports: No Symptoms Neck: reports: No Symptoms Cardiovascular: reports: Edema, Shortness of Breath. denies: Chest Pain, Palpitations Respiratory: reports: Cough, Orthopnea, Snoring, SOB, SOB on Exertion. denies: Hemoptysis, Wheezing Musculoskeletal: reports: Extremity Pain, Joint Swelling, Muscle Pain Physical Exam Vital Sings: Vital Signs Temperature 97.8 F 12/30/18 09:00 Pulse Rate 99 H 12/30/18 09:00 Respiratory Rate 18 12/30/18 09:00 Blood Pressure 156/66 12/30/18 09:00 O2 Sat by Pulse Oximetry (%) 97 12/30/18 09:00 Constitutional: Yes: No Distress, Calm Eyes: Yes: Conjunctiva Clear, EOM Intact HENT: Yes: Atraumatic, Normocephalic Neck: Yes: Supple, Trachea Midline Cardiovascular: Yes: Regular Rate and Rhythm Respiratory: Yes: Diminished, On Nasal O2, Rhonchi, SOB, SOB on Exertion. No: Accessory Muscle Use, Rales, Stridor, Tachypnea, Wheezes ...Inspection: Yes: WNL ...Clubbing: No Gastrointestinal: Yes: Normal Bowel Sounds, Soft, Abdomen, Obese Renal/: Yes: WNL Musculoskeletal: Yes: WNL Extremities: Yes: Erythema Edema: Yes Peripheral Pulses WNL: Yes Integumentary: Yes: Erythema, Skin Tear Neurological: Yes: WNL, Alert, Oriented ...Motor Strength: WNL Psychiatric: Yes: WNL, Alert, Oriented Labs: CBC, BMP 12/30/18 05:30 12/30/18 05:30 Imaging - Results Chest X-ray: Report Reviewed, Image Reviewed Cat Scan: Report Reviewed, Image Reviewed Problem List - Problems (1) Ovarian cancer Code(s): C56.9 - MALIGNANT NEOPLASM OF UNSPECIFIED OVARY (2) Mediastinal adenopathy Code(s): R59.0 - LOCALIZED ENLARGED LYMPH NODES (3) Morbid obesity Code(s): E66.01 - MORBID (SEVERE) OBESITY DUE TO EXCESS CALORIES (4) Diabetes Code(s): E11.9 - TYPE 2 DIABETES MELLITUS WITHOUT COMPLICATIONS Qualifiers: Diabetes mellitus type: type 2 (5) HTN (hypertension) Code(s): I10 - ESSENTIAL (PRIMARY) HYPERTENSION Qualifiers: Hypertension type: essential hypertension Qualified Code(s): I10 - Essential (primary) hypertension (6) Pulmonary edema Code(s): J81.1 - CHRONIC PULMONARY EDEMA Qualifiers: Chronicity: acute Qualified Code(s): J81.0 - Acute pulmonary edema (7) Shortness of breath Code(s): R06.02 - SHORTNESS OF BREATH (8) Tachycardia Code(s): R00.0 - TACHYCARDIA, UNSPECIFIED Assessment/Plan IMP: Clinical concern for OSAS Do not not have a clinical suspicion of PE at this point R/O LLL VTE Doppler of the LLE Will need sleep work up after D/C IV Lasix BD TX PRN No indication for systemic steroids Check LE Doppler ABX per ID O2 as needed Daily weights Cardiac Telemetry monitoring Thank you. Dr Capone
[2018-12-30] MEDS: PIPERACILLIN/TAZOB 3.375 GM 3.375 GM in DEXTROSE 5%-WATER - 50 ML IVPB SCH ×2 (13:33→18:13)
--- NOTE | 2018-12-30 15:26 | EKG ---
Test Reason : Blood Pressure : / mmHG Vent. Rate : 143 BPM Atrial Rate : 267 BPM P-R Int : 000 ms QRS Dur : 078 ms QT Int : 278 ms P-R-T Axes : 000 003 093 degrees QTc Int : 429 ms SUPRAVENTRICULAR TACHYCARDIA POSSIBLE ANTERIOR INFARCT , AGE UNDETERMINED ABNORMAL ECG NO PREVIOUS ECGS AVAILABLE Confirmed by MIRANDA MARSHALL, JACK ([id number]) on 12/30/2018 3:26:11 PM Referred By: Confirmed By:JACK JEAN MD
--- NOTE | 2018-12-30 17:45 | PN ---
Progress Note, Physician - Current Medication List Current Medications: Active Medications Albuterol/Ipratropium (Duoneb -) 1 amp NEB Q6H PRN PRN Reason: SHORTNESS OF BREATH Last Admin: 12/30/18 07:24 Dose: 1 amp Aspirin (Ecotrin -) 81 mg PO DAILY [facility] Last Admin: 12/30/18 09:44 Dose: 81 mg Carvedilol (Coreg -) 6.25 mg PO BID [facility] Last Admin: 12/30/18 13:00 Dose: 6.25 mg Fluoxetine HCl (Prozac -) 10 mg PO DAILY [facility] Last Admin: 12/30/18 13:00 Dose: 10 mg Furosemide (Lasix Injection -) 40 mg IVPUSH BID@0600,1400 [facility] Last Admin: 12/30/18 13:00 Dose: 40 mg Glipizide (Glucotrol Xl -) 10 mg PO BIDI [facility] Last Admin: 12/30/18 17:34 Dose: 10 mg Heparin Sodium (Porcine) (Heparin -) 5,000 unit SQ BID [facility] Last Admin: 12/30/18 09:44 Dose: 5,000 unit Piperacillin Sod/Tazobactam (Sod 3.375 gm/ Dextrose) 50 mls @ 100 mls/hr IVPB Q8H-IV [facility]; Protocol Last Admin: 12/30/18 13:33 Dose: 100 mls/hr Losartan Potassium (Cozaar -) 25 mg PO DAILY [facility] Last Admin: 12/30/18 13:00 Dose: 25 mg Metformin HCl (Glucophage -) 500 mg PO BIDAC [facility] Last Admin: 12/30/18 17:34 Dose: 500 mg Rosuvastatin Calcium (Crestor -) 10 mg PO DAILY [facility] Last Admin: 12/30/18 09:44 Dose: 10 mg - Objective Vital Signs: Vital Signs Temperature 98 F 12/30/18 14:15 Pulse Rate 102 H 12/30/18 14:15 Respiratory Rate 18 12/30/18 14:15 Blood Pressure 142/77 12/30/18 14:15 O2 Sat by Pulse Oximetry (%) 97 12/30/18 09:00 Constitutional: Yes: No Distress HENT: Yes: Atraumatic Neck: Yes: Supple Cardiovascular: Yes: Regular Rate and Rhythm Respiratory: Yes: CTA Bilaterally Gastrointestinal: Yes: Normal Bowel Sounds Extremities: Yes: Other (llex warm/red) Edema: Yes Edema: LLE: Trace, RLE: Trace Neurological: Yes: Alert, Oriented Labs: CBC, BMP 12/30/18 05:30 12/30/18 05:30 INR, PTT INR 1.02 (0.83-1.09) 12/29/18 16:02 Problem List - Problems (1) HTN (hypertension) Assessment/Plan: monitor continue home meds Code(s): I10 - ESSENTIAL (PRIMARY) HYPERTENSION Qualifiers: Hypertension type: essential hypertension Qualified Code(s): I10 - Essential (primary) hypertension (2) Diabetes Assessment/Plan: bgms home meds Code(s): E11.9 - TYPE 2 DIABETES MELLITUS WITHOUT COMPLICATIONS Qualifiers: Diabetes mellitus type: type 2 (3) Pulmonary edema Assessment/Plan: iv lasix Code(s): J81.1 - CHRONIC PULMONARY EDEMA Qualifiers: Chronicity: acute Qualified Code(s): J81.0 - Acute pulmonary edema (4) Shortness of breath Assessment/Plan: iv lasix duo nebs Code(s): R06.02 - SHORTNESS OF BREATH (5) Cellulitis Assessment/Plan: left leg no dvt on iv abx Code(s): L03.90 - CELLULITIS, UNSPECIFIED (6) DVT prophylaxis Code(s): [id number] - (7) Morbid obesity Code(s): E66.01 - MORBID (SEVERE) OBESITY DUE TO EXCESS CALORIES (8) Ovarian cancer Code(s): C56.9 - MALIGNANT NEOPLASM OF UNSPECIFIED OVARY
[2018-12-31] MEDS ORDERED: DEXTROSE 5%-WATER - 50 ML IVPB ONE ×3 (01:04→16:59)
[2018-12-31] MEDS ORDERED: PIPERACILLIN/TAZOBACTAM 3.375 GM VIAL IVPB ONE ×3 (01:04→16:59)
[2018-12-31] MEDS: PIPERACILLIN/TAZOB 3.375 GM 3.375 GM in DEXTROSE 5%-WATER - 50 ML IVPB SCH ×3 (01:42→17:43)
[2018-12-31] MEDS: ALBUTEROL SO4 2.5/IPRATROPIUM 0.5 INH SOL 3 ML VIAL.NEB. NEB PRN (07:29)
[2018-12-31] MEDS: metFORMIN HCL 500 MG TABLET (FP) PO SCH ×2 (07:57→17:43)
[2018-12-31] MEDS: FUROSEMIDE 40 MG/4 ML INJECTABLE VIAL IVPUSH SCH ×2 (07:57→14:18)
[2018-12-31 08:18] LABS: ANION GAP 6 MMOL/L (8-16); BLOOD UREA NITROGEN 19 mg/dL (7-18); CALCIUM 9.2 mg/dL (8.5-10.1); CHLORIDE 98 mmol/L (98-107); CHOLESTEROL 128 mg/dL (50-200); CO2 33 mmol/L (21-32); CREATININE 0.7 mg/dL (0.55-1.3); GLUCOSE,RANDOM 190 mg/dL (74-106); HDL CHOLESTEROL 60 mg/dL (40-60); POTASSIUM 3.5 mmol/L (3.5-5.1); SODIUM 137 mmol/L (136-145); TRIGLYCERIDES 123 mg/dL (0-150)
[2018-12-31] MEDS: glipiZIDE-XL 10 MG TAB.ER.24 (FP) PO SCH ×2 (10:55→16:30)
[2018-12-31] MEDS: LOSARTAN POTASSIUM 25 MG TABLET PO SCH (10:55)
[2018-12-31] MEDS: ROSUVASTATIN CA 10 MG TABLET (FP) PO SCH (10:55)
[2018-12-31] MEDS: HEPARIN NA (PORCINE) 5,000 UNITS/ML 1ML VIAL SQ SCH ×2 (10:56→22:08)
[2018-12-31] MEDS: FLUoxetine HCL 10 MG CAPSULE (FP) PO SCH (10:56)
[2018-12-31] MEDS: CARVEDILOL 6.25 MG TABLET (FP) PO SCH ×2 (10:56→22:08)
[2018-12-31] MEDS: ASPIRIN COATED 81 MG TABLET.EC PO SCH (10:56)
--- NOTE | 2018-12-31 11:57 | PN ---
Progress Note, Physician - Current Medication List Current Medications: Active Medications Albuterol/Ipratropium (Duoneb -) 1 amp NEB Q6H PRN PRN Reason: SHORTNESS OF BREATH Last Admin: 12/31/18 07:29 Dose: 1 amp Aspirin (Ecotrin -) 81 mg PO DAILY [facility] Last Admin: 12/31/18 10:56 Dose: 81 mg Carvedilol (Coreg -) 6.25 mg PO BID [facility] Last Admin: 12/31/18 10:56 Dose: 6.25 mg Fluoxetine HCl (Prozac -) 10 mg PO DAILY [facility] Last Admin: 12/31/18 10:56 Dose: 10 mg Furosemide (Lasix Injection -) 40 mg IVPUSH BID@0600,1400 [facility] Last Admin: 12/31/18 07:57 Dose: 40 mg Glipizide (Glucotrol Xl -) 10 mg PO BIDI [facility] Last Admin: 12/31/18 10:55 Dose: 10 mg Heparin Sodium (Porcine) (Heparin -) 5,000 unit SQ BID [facility] Last Admin: 12/31/18 10:56 Dose: 5,000 unit Piperacillin Sod/Tazobactam (Sod 3.375 gm/ Dextrose) 50 mls @ 100 mls/hr IVPB Q8H-IV [facility]; Protocol Last Admin: 12/31/18 10:57 Dose: 100 mls/hr Losartan Potassium (Cozaar -) 25 mg PO DAILY [facility] Last Admin: 12/31/18 10:55 Dose: 25 mg Metformin HCl (Glucophage -) 500 mg PO BIDAC [facility] Last Admin: 12/31/18 07:57 Dose: 500 mg Rosuvastatin Calcium (Crestor -) 10 mg PO DAILY [facility] Last Admin: 12/31/18 10:55 Dose: 10 mg - Objective Vital Signs: Vital Signs Temperature 98.8 F 12/31/18 08:51 Pulse Rate 92 H 12/31/18 08:51 Respiratory Rate 18 12/31/18 08:51 Blood Pressure 162/70 12/31/18 08:51 O2 Sat by Pulse Oximetry (%) 99 12/30/18 20:11 Labs: CBC, BMP 12/30/18 05:30 12/31/18 05:30 INR, PTT INR 1.02 (0.83-1.09) 12/29/18 16:02
--- NOTE | 2018-12-31 12:16 | PN ---
Progress Note (short form) - Note Progress Note: PULMONARY Awake/alert/oob to chair offers no complaints VSS Constitutional: Yes: No Distress, Calm Eyes: Yes: Conjunctiva Clear, EOM Intact HENT: Yes: Atraumatic, Normocephalic Neck: Yes: Supple, Trachea Midline Cardiovascular: Yes: Regular Rate and Rhythm Respiratory: Yes: Diminished, On Nasal O2, Rhonchi, SOB, SOB on Exertion. No: Accessory Muscle Use, Rales, Stridor, Tachypnea, Wheezes ...Inspection: Yes: WNL ...Clubbing: No Gastrointestinal: Yes: Normal Bowel Sounds, Soft, Abdomen, Obese Renal/: Yes: WNL Musculoskeletal: Yes: WNL Extremities: Yes: Erythema Edema: Yes Peripheral Pulses WNL: Yes Integumentary: Yes: Erythema, Skin Tear Neurological: Yes: WNL, Alert, Oriented ...Motor Strength: WNL Psychiatric: Yes: WNL, Alert, Oriented Labs/notes/images/labs/meds reviewed Problem List - Problems (1) Ovarian cancer Code(s): C56.9 - MALIGNANT NEOPLASM OF UNSPECIFIED OVARY (2) Mediastinal adenopathy Code(s): R59.0 - LOCALIZED ENLARGED LYMPH NODES (3) Morbid obesity Code(s): E66.01 - MORBID (SEVERE) OBESITY DUE TO EXCESS CALORIES (4) Diabetes Code(s): E11.9 - TYPE 2 DIABETES MELLITUS WITHOUT COMPLICATIONS Qualifiers: Diabetes mellitus type: type 2 (5) HTN (hypertension) Code(s): I10 - ESSENTIAL (PRIMARY) HYPERTENSION Qualifiers: Hypertension type: essential hypertension Qualified Code(s): I10 - Essential (primary) hypertension (6) Pulmonary edema Code(s): J81.1 - CHRONIC PULMONARY EDEMA Qualifiers: Chronicity: acute Qualified Code(s): J81.0 - Acute pulmonary edema (7) Shortness of breath Code(s): R06.02 - SHORTNESS OF BREATH (8) Tachycardia Code(s): R00.0 - TACHYCARDIA, UNSPECIFIED Assessment/Plan IMP: Clinical concern for OSAS no clinical suspicion of PE at this point R/O LLL VTE Doppler of the LLE Will need sleep work up after D/C IV Lasix BD TX PRN No indication for systemic steroids Check LE Doppler ABX per ID O2 as needed Daily weights Cardiac Telemetry monitoring R SAMPSON MD
--- NOTE | 2018-12-31 15:28 | PN ---
Progress Note, Physician - Current Medication List Current Medications: Active Medications Albuterol/Ipratropium (Duoneb -) 1 amp NEB Q6H PRN PRN Reason: SHORTNESS OF BREATH Last Admin: 12/31/18 07:29 Dose: 1 amp Aspirin (Ecotrin -) 81 mg PO DAILY [facility] Last Admin: 12/31/18 10:56 Dose: 81 mg Carvedilol (Coreg -) 6.25 mg PO BID [facility] Last Admin: 12/31/18 10:56 Dose: 6.25 mg Fluoxetine HCl (Prozac -) 10 mg PO DAILY [facility] Last Admin: 12/31/18 10:56 Dose: 10 mg Furosemide (Lasix Injection -) 40 mg IVPUSH BID@0600,1400 [facility] Last Admin: 12/31/18 14:18 Dose: 40 mg Glipizide (Glucotrol Xl -) 10 mg PO BIDI [facility] Last Admin: 12/31/18 10:55 Dose: 10 mg Heparin Sodium (Porcine) (Heparin -) 5,000 unit SQ BID [facility] Last Admin: 12/31/18 10:56 Dose: 5,000 unit Piperacillin Sod/Tazobactam (Sod 3.375 gm/ Dextrose) 50 mls @ 100 mls/hr IVPB Q8H-IV [facility]; Protocol Last Admin: 12/31/18 10:57 Dose: 100 mls/hr Losartan Potassium (Cozaar -) 25 mg PO DAILY [facility] Last Admin: 12/31/18 10:55 Dose: 25 mg Metformin HCl (Glucophage -) 500 mg PO BIDAC [facility] Last Admin: 12/31/18 07:57 Dose: 500 mg Rosuvastatin Calcium (Crestor -) 10 mg PO DAILY [facility] Last Admin: 12/31/18 10:55 Dose: 10 mg - Objective Vital Signs: Vital Signs Temperature 98.8 F 12/31/18 08:51 Pulse Rate 92 H 12/31/18 08:51 Respiratory Rate 18 12/31/18 08:51 Blood Pressure 162/70 12/31/18 08:51 O2 Sat by Pulse Oximetry (%) 99 12/30/18 20:11 Constitutional: Yes: No Distress HENT: Yes: Atraumatic Neck: Yes: Supple Cardiovascular: Yes: Regular Rate and Rhythm Respiratory: Yes: CTA Bilaterally Gastrointestinal: Yes: Normal Bowel Sounds Extremities: Yes: Other (cellulitis b/l tad) Edema: Yes Edema: LLE: 1+, RLE: 1+ Peripheral Pulses WNL: Yes Neurological: Yes: Alert, Oriented Labs: CBC, BMP 12/30/18 05:30 12/31/18 05:30 INR, PTT INR 1.02 (0.83-1.09) 12/29/18 16:02 Problem List - Problems (1) HTN (hypertension) Assessment/Plan: monitor continue home meds Code(s): I10 - ESSENTIAL (PRIMARY) HYPERTENSION Qualifiers: Hypertension type: essential hypertension Qualified Code(s): I10 - Essential (primary) hypertension (2) Diabetes Assessment/Plan: bgms home meds refusing insulin Code(s): E11.9 - TYPE 2 DIABETES MELLITUS WITHOUT COMPLICATIONS Qualifiers: Diabetes mellitus type: type 2 (3) Pulmonary edema Assessment/Plan: iv lasix Code(s): J81.1 - CHRONIC PULMONARY EDEMA Qualifiers: Chronicity: acute Qualified Code(s): J81.0 - Acute pulmonary edema (4) Shortness of breath Assessment/Plan: iv lasix duo nebs Code(s): R06.02 - SHORTNESS OF BREATH (5) Cellulitis Assessment/Plan: left leg no dvt on iv abx Code(s): L03.90 - CELLULITIS, UNSPECIFIED (6) DVT prophylaxis Code(s): [id number] - (7) Morbid obesity Code(s): E66.01 - MORBID (SEVERE) OBESITY DUE TO EXCESS CALORIES (8) Ovarian cancer Code(s): C56.9 - MALIGNANT NEOPLASM OF UNSPECIFIED OVARY
--- NOTE | 2018-12-31 15:55 | PN ---
Progress Note, Physician History of Present Illness: Exertinal shortness of breath, productive cough, peripheral edema and orthopnea improving with diuresis. LLE cellulitis improved in symptoms. - Current Medication List Current Medications: Active Medications Albuterol/Ipratropium (Duoneb -) 1 amp NEB Q6H PRN PRN Reason: SHORTNESS OF BREATH Last Admin: 12/31/18 07:29 Dose: 1 amp Aspirin (Ecotrin -) 81 mg PO DAILY [facility] Last Admin: 12/31/18 10:56 Dose: 81 mg Carvedilol (Coreg -) 6.25 mg PO BID [facility] Last Admin: 12/31/18 10:56 Dose: 6.25 mg Fluoxetine HCl (Prozac -) 10 mg PO DAILY [facility] Last Admin: 12/31/18 10:56 Dose: 10 mg Furosemide (Lasix Injection -) 40 mg IVPUSH BID@0600,1400 [facility] Last Admin: 12/31/18 14:18 Dose: 40 mg Glipizide (Glucotrol Xl -) 10 mg PO BIDI [facility] Last Admin: 12/31/18 10:55 Dose: 10 mg Heparin Sodium (Porcine) (Heparin -) 5,000 unit SQ BID [facility] Last Admin: 12/31/18 10:56 Dose: 5,000 unit Piperacillin Sod/Tazobactam (Sod 3.375 gm/ Dextrose) 50 mls @ 100 mls/hr IVPB Q8H-IV [facility]; Protocol Last Admin: 12/31/18 10:57 Dose: 100 mls/hr Losartan Potassium (Cozaar -) 25 mg PO DAILY [facility] Last Admin: 12/31/18 10:55 Dose: 25 mg Metformin HCl (Glucophage -) 500 mg PO BIDAC [facility] Last Admin: 12/31/18 07:57 Dose: 500 mg Rosuvastatin Calcium (Crestor -) 10 mg PO DAILY [facility] Last Admin: 12/31/18 10:55 Dose: 10 mg - Objective Vital Signs: Vital Signs Temperature 98.2 F 12/31/18 14:15 Pulse Rate 69 12/31/18 14:15 Respiratory Rate 18 12/31/18 14:15 Blood Pressure 146/85 12/31/18 14:15 O2 Sat by Pulse Oximetry (%) 99 12/30/18 20:11 Constitutional: Yes: No Distress, Calm Neck: Yes: Supple Cardiovascular: Yes: Regular Rate and Rhythm Respiratory: Yes: Regular, Diminished, On Nasal O2 Gastrointestinal: Yes: Normal Bowel Sounds, Soft Extremities: Yes: Erythema Edema: Yes Edema: LLE: 1+, RLE: 1+ Integumentary: Yes: Venous Stasis Changes Wound/Incision: Yes: Reddened (LLE) Labs: CBC, BMP 12/30/18 05:30 12/31/18 05:30 INR, PTT INR 1.02 (0.83-1.09) 12/29/18 16:02 - ....Imaging Cat Scan: Report Reviewed (LLE scan shows subcutaneous edema w/o abscess) Ultrasound: Report Reviewed (No DVT in LLE) EKG: Report Reviewed (ST @ 113 Tele: NSR) Problem List - Problems (1) Diabetes Code(s): E11.9 - TYPE 2 DIABETES MELLITUS WITHOUT COMPLICATIONS Qualifiers: Diabetes mellitus type: type 2 (2) HTN (hypertension) Code(s): I10 - ESSENTIAL (PRIMARY) HYPERTENSION Qualifiers: Hypertension type: essential hypertension Qualified Code(s): I10 - Essential (primary) hypertension (3) Pulmonary edema Code(s): J81.1 - CHRONIC PULMONARY EDEMA Qualifiers: Chronicity: acute Qualified Code(s): J81.0 - Acute pulmonary edema (4) Shortness of breath Code(s): R06.02 - SHORTNESS OF BREATH (5) Tachycardia Code(s): R00.0 - TACHYCARDIA, UNSPECIFIED Assessment/Plan Echo: Normal LV and RV size and fxn, mild LAE, mild MR, TR, mild ELADIO 15.5 mmHg, ELADIO 1.2 cm^2 1. Acute on chronic diastolic heart failure with pulmonary edema resolving 2. Hypertensive cardiomyopathy 3. Type 2 DM not at goal control 4. Hyperlipidemia 5. LLE cellulitis 6. PSVT->NSR 7. Demand ischemia 8. OSAS suspect P:1. IV diuresis with monitor diuretic response, renal fxn and electrolytes 2. Continue ASA 81 qd, carvedilol 6.25 bid, Crestor 10 qd, and losartan 25 qd 3. Tropns downtrending 4. Abx course for LLE cellulitis, wound care 5. Transfer to floor care, january d/c telemetry
[2018-12-31 16:39] VITALS: BMI 42.6
[2018-12-31] MEDS ORDERED: PT OWN MED DRAWER 7, Y5N ONE (16:59)
[2019-01-01] MEDS ORDERED: DEXTROSE 5%-WATER - 50 ML IVPB ONE ×3 (01:52→17:48)
[2019-01-01] MEDS ORDERED: PIPERACILLIN/TAZOBACTAM 3.375 GM VIAL IVPB ONE ×3 (01:52→17:48)
[2019-01-01] MEDS: PIPERACILLIN/TAZOB 3.375 GM 3.375 GM in DEXTROSE 5%-WATER - 50 ML IVPB SCH ×3 (02:06→17:58)
--- NOTE | 2019-01-01 06:46 | PN ---
Progress Note (short form) - Note Progress Note: Chief Complaint: Events noted, notes reviewed, dyspnea improved, denies any chest pain History of Present Illness: Seen and examined on telemetry. Events noted, notes reviewed, dyspnea improved, denies any chest pain Echo: Normal LV and RV size and function, mild LAE, mild MR, TR, mild mean gradient 15.5 mmHg, ELADIO 1.2 cm^2 Current Medications: Current Medications Albuterol/Ipratropium (Duoneb -) 1 amp NEB Q6H PRN PRN Reason: SHORTNESS OF BREATH Last Admin: 12/31/18 07:29 Dose: 1 amp Aspirin (Ecotrin -) 81 mg PO DAILY [facility] Last Admin: 12/31/18 10:56 Dose: 81 mg Carvedilol (Coreg -) 6.25 mg PO BID [facility] Last Admin: 12/31/18 22:08 Dose: 6.25 mg Fluoxetine HCl (Prozac -) 10 mg PO DAILY [facility] Last Admin: 12/31/18 10:56 Dose: 10 mg Furosemide (Lasix Injection -) 40 mg IVPUSH DAILY [facility] Glipizide (Glucotrol Xl -) 10 mg PO BIDI [facility] Last Admin: 12/31/18 10:55 Dose: 10 mg Heparin Sodium (Porcine) (Heparin -) 5,000 unit SQ BID [facility] Last Admin: 12/31/18 22:08 Dose: 5,000 unit Piperacillin Sod/Tazobactam (Sod 3.375 gm/ Dextrose) 50 mls @ 100 mls/hr IVPB Q8H-IV [facility]; Protocol Last Admin: 01/01/19 02:06 Dose: 100 mls/hr Losartan Potassium (Cozaar -) 25 mg PO DAILY [facility] Last Admin: 12/31/18 10:55 Dose: 25 mg Metformin HCl (Glucophage -) 500 mg PO BIDAC [facility] Last Admin: 12/31/18 17:43 Dose: 500 mg Rosuvastatin Calcium (Crestor -) 10 mg PO DAILY [facility] Last Admin: 12/31/18 10:55 Dose: 10 mg Review of Systems Cardiovascular: As noted above Respiratory: reports: Cough but no Sputum Production Gastrointestinal: denies: Nausea, Vomiting, Diarrhea, Constipation or Abdominal Discomfort Musculoskeletal: No Symptoms Reported Endocrine: No Symptoms Reported - Objective Vital Signs: Last Vital Signs Temp Pulse Resp BP Pulse Ox 97.5 F L 78 20 151/91 100 01/01/19 06:00 01/01/19 06:00 01/01/19 06:00 01/01/19 06:00 12/31/18 21:00 Intake & Output 12/29/18 12/30/18 12/31/18 01/01/19 23:59 23:59 23:59 23:59 Intake Total 130 270 70 Balance 130 270 70 Weight 236 lb 6 oz 236 lb 9.6 oz 233 lb Neck: Supple Negative JVD No bruit Respiratory: Diminished breath sounds at the bases Cardiovascular: S1, S2 Regular Rate Rhythm Grade 2/6 MUNDO Gastrointestinal: Soft Benign Normal Bowel Sounds Ext: Trace Ankle Edema Labs: Troponin, BNP 12/31/18 12/31/18 05:30 05:30 Troponin I 0.04 Cancelled CBC, BMP 12/30/18 05:30 12/31/18 05:30 Hepatic Panel Total Bilirubin 0.8 mg/dL (0.2-1) 12/30/18 05:30 AST 17 U/L (15-37) 12/30/18 05:30 ALT 21 U/L (13-61) 12/30/18 05:30 Alkaline Phosphatase 105 U/L (45-117) 12/30/18 05:30 Albumin 3.9 g/dl (3.4-5.0) 12/30/18 05:30 INR, PTT INR 1.02 (0.83-1.09) 12/29/18 16:02 Assessment/Plan ASSESSMENT: 1. Acute on chronic class I-II NYHA classification LV failure related to diastolic LV dysfunction, resolving 2. CAD with evidnce of demand ischemic injury angina pectoris 3. PSVT currently in NSR 4. Hypertensive cardiomyopathy 5. DM 6. Hyperlipidemia 7. Left lower extremity cellulitis PLAN: 1. Continue Lasix IV with close monitoring of renal function and electrolytes 2. Continue ASA 3. Continue Carvedilol and titrate dosage as needed 4. Continue Cozaar and titrate dosage as needed 5. Continue Crestor 6. Antibiotics as per the primary team 7. Transfer to floor care from the cardiovascular point of view Naina Nevarez MD
[2019-01-01] MEDS: glipiZIDE-XL 10 MG TAB.ER.24 (FP) PO SCH ×2 (06:49→17:58)
[2019-01-01] MEDS: metFORMIN HCL 500 MG TABLET (FP) PO SCH ×2 (06:49→17:58)
[2019-01-01] MEDS ORDERED: PT OWN MED DRAWER 7, Y5N ONE (06:51)
[2019-01-01] MEDS ORDERED: LOSARTAN POTASSIUM 50 MG TABLET (FP) PO SCH (10:08)
[2019-01-01] MEDS: ASPIRIN COATED 81 MG TABLET.EC PO SCH (11:00)
[2019-01-01] MEDS: LOSARTAN POTASSIUM 25 MG TABLET PO SCH (11:01)
[2019-01-01] MEDS: CARVEDILOL 6.25 MG TABLET (FP) PO SCH (11:01)
[2019-01-01] MEDS: ROSUVASTATIN CA 10 MG TABLET (FP) PO SCH (11:02)
[2019-01-01] MEDS: FLUoxetine HCL 10 MG CAPSULE (FP) PO SCH (11:02)
[2019-01-01] MEDS: HEPARIN NA (PORCINE) 5,000 UNITS/ML 1ML VIAL SQ SCH ×2 (11:03→21:18)
[2019-01-01] MEDS: FUROSEMIDE 40 MG/4 ML INJECTABLE VIAL IVPUSH SCH (11:03)
--- NOTE | 2019-01-01 11:20 | PN ---
Progress Note (short form) - Note Progress Note: PULMONARY Awake/alert/oob to chair offers no complaints subjective improvement VSS Constitutional: Yes: No Distress, Calm Eyes: Yes: Conjunctiva Clear, EOM Intact HENT: Yes: Atraumatic, Normocephalic Neck: Yes: Supple, Trachea Midline Cardiovascular: Yes: Regular Rate and Rhythm Respiratory: Yes: Diminished, On Nasal O2, Rhonchi, SOB, SOB on Exertion. No: Accessory Muscle Use, Rales, Stridor, Tachypnea, Wheezes ...Inspection: Yes: WNL ...Clubbing: No Gastrointestinal: Yes: Normal Bowel Sounds, Soft, Abdomen, Obese Renal/: Yes: WNL Musculoskeletal: Yes: WNL Extremities: Yes: Erythema Edema: Yes Peripheral Pulses WNL: Yes Integumentary: Yes: Erythema, Skin Tear Neurological: Yes: WNL, Alert, Oriented ...Motor Strength: WNL Psychiatric: Yes: WNL, Alert, Oriented Labs/notes/images/labs/meds reviewed Problem List - Problems (1) Ovarian cancer Code(s): C56.9 - MALIGNANT NEOPLASM OF UNSPECIFIED OVARY (2) Mediastinal adenopathy Code(s): R59.0 - LOCALIZED ENLARGED LYMPH NODES (3) Morbid obesity Code(s): E66.01 - MORBID (SEVERE) OBESITY DUE TO EXCESS CALORIES (4) Diabetes Code(s): E11.9 - TYPE 2 DIABETES MELLITUS WITHOUT COMPLICATIONS Qualifiers: Diabetes mellitus type: type 2 (5) HTN (hypertension) Code(s): I10 - ESSENTIAL (PRIMARY) HYPERTENSION Qualifiers: Hypertension type: essential hypertension Qualified Code(s): I10 - Essential (primary) hypertension (6) Pulmonary edema Code(s): J81.1 - CHRONIC PULMONARY EDEMA Qualifiers: Chronicity: acute Qualified Code(s): J81.0 - Acute pulmonary edema (7) Shortness of breath Code(s): R06.02 - SHORTNESS OF BREATH (8) Tachycardia Code(s): R00.0 - TACHYCARDIA, UNSPECIFIED Clinical concern for OSAS no clinical suspicion of PE at this point R/O LLL VTE Doppler of the LLE pending Will need sleep work up after D/C IV Lasix BD TX PRN No indication for systemic steroids Check LE Doppler when done ABX per ID O2 as needed Daily weights Cardiac Telemetry monitoring R SAMPSON MD
--- NOTE | 2019-01-01 12:02 | PN ---
Progress Note, Physician History of Present Illness: patient starting to feel better wound and leg healing well cx result noted awaiting for identification of the organism - Current Medication List Current Medications: Active Medications Albuterol/Ipratropium (Duoneb -) 1 amp NEB Q6H PRN PRN Reason: SHORTNESS OF BREATH Last Admin: 12/31/18 07:29 Dose: 1 amp Aspirin (Ecotrin -) 81 mg PO DAILY [facility] Last Admin: 01/01/19 11:00 Dose: 81 mg Carvedilol (Coreg -) 12.5 mg PO BID [facility] Fluoxetine HCl (Prozac -) 10 mg PO DAILY [facility] Last Admin: 01/01/19 11:02 Dose: 10 mg Furosemide (Lasix Injection -) 40 mg IVPUSH DAILY [facility] Last Admin: 01/01/19 11:03 Dose: 40 mg Glipizide (Glucotrol Xl -) 10 mg PO BIDI [facility] Last Admin: 01/01/19 06:49 Dose: 10 mg Heparin Sodium (Porcine) (Heparin -) 5,000 unit SQ BID [facility] Last Admin: 01/01/19 11:03 Dose: 5,000 unit Piperacillin Sod/Tazobactam (Sod 3.375 gm/ Dextrose) 50 mls @ 100 mls/hr IVPB Q8H-IV [facility]; Protocol Last Admin: 01/01/19 11:03 Dose: 100 mls/hr Losartan Potassium (Cozaar -) 50 mg PO DAILY [facility] Metformin HCl (Glucophage -) 500 mg PO BIDAC [facility] Last Admin: 01/01/19 06:49 Dose: 500 mg Rosuvastatin Calcium (Crestor -) 10 mg PO DAILY [facility] Last Admin: 01/01/19 11:02 Dose: 10 mg - Objective Vital Signs: Vital Signs Temperature 98 F 01/01/19 08:30 Pulse Rate 84 01/01/19 08:30 Respiratory Rate 20 01/01/19 08:30 Blood Pressure 152/90 01/01/19 08:30 O2 Sat by Pulse Oximetry (%) 100 01/01/19 08:30 Constitutional: Yes: No Distress, Calm Cardiovascular: Yes: S1, S2 Respiratory: Yes: Regular, CTA Bilaterally Gastrointestinal: Yes: Normal Bowel Sounds, Soft Musculoskeletal: Yes: WNL Extremities: Yes: Erythema (improved), Other Neurological: Yes: Alert, Oriented Psychiatric: Yes: Alert, Oriented Labs: CBC, BMP 04/18/19 05:30 12/31/18 05:30 INR, PTT INR 1.02 (0.83-1.09) 12/29/18 16:02 Assessment/Plan Problem List - Problems (1) Diabetes Code(s): E11.9 - TYPE 2 DIABETES MELLITUS WITHOUT COMPLICATIONS Qualifiers: Diabetes mellitus type: type 2 (2) HTN (hypertension) Code(s): I10 - ESSENTIAL (PRIMARY) HYPERTENSION Qualifiers: Hypertension type: essential hypertension Qualified Code(s): I10 - Essential (primary) hypertension (3) Pulmonary edema Code(s): J81.1 - CHRONIC PULMONARY EDEMA Qualifiers: Chronicity: acute Qualified Code(s): J81.0 - Acute pulmonary edema (4) Shortness of breath Code(s): R06.02 - SHORTNESS OF BREATH (5) Tachycardia Code(s): R00.0 - TACHYCARDIA, UNSPECIFIED left leg cellulitis infected wound left leg plan await for identification of the organism wound care monitor swelling continue abx rest as per the team
[2019-01-01] MEDS: CARVEDILOL 12.5 MG TABLET (FP) PO SCH (21:18)
--- NOTE | 2019-01-01 21:43 | PN ---
Progress Note, Physician - Current Medication List Current Medications: Active Medications Albuterol/Ipratropium (Duoneb -) 1 amp NEB Q6H PRN PRN Reason: SHORTNESS OF BREATH Last Admin: 12/31/18 07:29 Dose: 1 amp Aspirin (Ecotrin -) 81 mg PO DAILY [facility] Last Admin: 01/01/19 11:00 Dose: 81 mg Carvedilol (Coreg -) 12.5 mg PO BID [facility] Last Admin: 01/01/19 21:18 Dose: 12.5 mg Fluoxetine HCl (Prozac -) 10 mg PO DAILY [facility] Last Admin: 01/01/19 11:02 Dose: 10 mg Furosemide (Lasix Injection -) 40 mg IVPUSH DAILY [facility] Last Admin: 01/01/19 11:03 Dose: 40 mg Glipizide (Glucotrol Xl -) 10 mg PO BIDI [facility] Last Admin: 01/01/19 17:58 Dose: 10 mg Heparin Sodium (Porcine) (Heparin -) 5,000 unit SQ BID [facility] Last Admin: 01/01/19 21:18 Dose: 5,000 unit Piperacillin Sod/Tazobactam (Sod 3.375 gm/ Dextrose) 50 mls @ 100 mls/hr IVPB Q8H-IV [facility]; Protocol Last Admin: 01/01/19 17:58 Dose: 100 mls/hr Losartan Potassium (Cozaar -) 50 mg PO DAILY [facility] Metformin HCl (Glucophage -) 500 mg PO BIDAC [facility] Last Admin: 01/01/19 17:58 Dose: 500 mg Rosuvastatin Calcium (Crestor -) 10 mg PO DAILY [facility] Last Admin: 01/01/19 11:02 Dose: 10 mg - Objective Vital Signs: Vital Signs Temperature 98.8 F 01/01/19 18:00 Pulse Rate 76 01/01/19 18:00 Respiratory Rate 18 01/01/19 18:00 Blood Pressure 146/78 01/01/19 18:00 O2 Sat by Pulse Oximetry (%) 100 01/01/19 21:00 Cardiovascular: Yes: Regular Rate and Rhythm Labs: CBC, BMP 12/30/18 05:30 12/31/18 05:30 INR, PTT INR 1.02 (0.83-1.09) 12/29/18 16:02 Problem List - Problems (1) Acute on chronic diastolic (congestive) heart failure Code(s): I50.33 - ACUTE ON CHRONIC DIASTOLIC (CONGESTIVE) HEART FAILURE (2) Cellulitis Code(s): L03.90 - CELLULITIS, UNSPECIFIED (3) Diabetes Code(s): E11.9 - TYPE 2 DIABETES MELLITUS WITHOUT COMPLICATIONS Qualifiers: Diabetes mellitus type: type 2 (4) HTN (hypertension) Code(s): I10 - ESSENTIAL (PRIMARY) HYPERTENSION Qualifiers: Hypertension type: essential hypertension Qualified Code(s): I10 - Essential (primary) hypertension (5) Morbid obesity Code(s): E66.01 - MORBID (SEVERE) OBESITY DUE TO EXCESS CALORIES (6) Ovarian cancer Code(s): C56.9 - MALIGNANT NEOPLASM OF UNSPECIFIED OVARY
[2019-01-02] MEDS ORDERED: DEXTROSE 5%-WATER - 50 ML IVPB ONE ×3 (00:46→17:19)
[2019-01-02] MEDS ORDERED: PIPERACILLIN/TAZOBACTAM 3.375 GM VIAL IVPB ONE ×3 (00:46→17:19)
[2019-01-02] MEDS: PIPERACILLIN/TAZOB 3.375 GM 3.375 GM in DEXTROSE 5%-WATER - 50 ML IVPB SCH ×3 (02:40→17:26)
[2019-01-02] MEDS ORDERED: PT OWN MED DRAWER 7, Y5N ONE ×4 (05:45→17:18)
[2019-01-02] MEDS: glipiZIDE-XL 10 MG TAB.ER.24 (FP) PO SCH ×2 (06:42→16:29)
[2019-01-02] MEDS: metFORMIN HCL 500 MG TABLET (FP) PO SCH ×2 (06:42→16:29)
--- NOTE | 2019-01-02 07:37 | PN ---
Progress Note (short form) - Note Progress Note: Chief Complaint: Events noted, notes reviewed, sitting in a chair, dyspnea improved, denies any chest pain History of Present Illness: Seen and examined on telemetry. Events noted, notes reviewed, sitting in a chair , dyspnea improved, denies any chest pain Echo: Normal LV and RV size and function, mild LAE, mild MR, TR, mild mean gradient 15.5 mmHg, ELADIO 1.2 cm^2 Current Medications: Current Medications Albuterol/Ipratropium (Duoneb -) 1 amp NEB Q6H PRN PRN Reason: SHORTNESS OF BREATH Last Admin: 12/31/18 07:29 Dose: 1 amp Aspirin (Ecotrin -) 81 mg PO DAILY [facility] Last Admin: 01/01/19 11:00 Dose: 81 mg Carvedilol (Coreg -) 12.5 mg PO BID [facility] Last Admin: 01/01/19 21:18 Dose: 12.5 mg Fluoxetine HCl (Prozac -) 10 mg PO DAILY [facility] Last Admin: 01/01/19 11:02 Dose: 10 mg Furosemide (Lasix Injection -) 40 mg IVPUSH DAILY [facility] Last Admin: 01/01/19 11:03 Dose: 40 mg Glipizide (Glucotrol Xl -) 10 mg PO BIDI [facility] Last Admin: 01/02/19 06:42 Dose: Not Given Heparin Sodium (Porcine) (Heparin -) 5,000 unit SQ BID [facility] Last Admin: 01/01/19 21:18 Dose: 5,000 unit Piperacillin Sod/Tazobactam (Sod 3.375 gm/ Dextrose) 50 mls @ 100 mls/hr IVPB Q8H-IV [facility]; Protocol Last Admin: 01/02/19 02:40 Dose: 100 mls/hr Losartan Potassium (Cozaar -) 50 mg PO DAILY [facility] Metformin HCl (Glucophage -) 500 mg PO BIDAC [facility] Last Admin: 01/02/19 06:42 Dose: 500 mg Rosuvastatin Calcium (Crestor -) 10 mg PO DAILY [facility] Last Admin: 01/01/19 11:02 Dose: 10 mg Review of Systems Cardiovascular: As noted above Respiratory: reports: Cough but no Sputum Production Gastrointestinal: denies: Nausea, Vomiting, Diarrhea, Constipation or Abdominal Discomfort Musculoskeletal: No Symptoms Reported Endocrine: No Symptoms Reported - Objective Vital Signs: Last Vital Signs Temp Pulse Resp BP Pulse Ox 97.5 F L 70 20 157/82 100 01/02/19 05:56 01/02/19 05:56 01/02/19 05:56 01/02/19 05:56 01/01/19 21:00 Intake & Output 12/30/18 12/31/18 01/01/19 01/02/19 23:59 23:59 23:59 23:59 Intake Total 270 670 250 Balance 270 670 250 Weight 236 lb 9.6 oz 233 lb 233 lb 231 lb 12.8 oz Neck: Supple Negative JVD No bruit Respiratory: Diminished breath sounds at the bases Cardiovascular: S1, S2 Regular Rate Rhythm Grade 2/6 MUNDO Gastrointestinal: Soft Benign Normal Bowel Sounds Ext: Trace Ankle Edema Labs: CBC, BMP 12/30/18 05:30 12/31/18 05:30 Hepatic Panel Total Bilirubin 0.8 mg/dL (0.2-1) 12/30/18 05:30 AST 17 U/L (15-37) 12/30/18 05:30 ALT 21 U/L (13-61) 12/30/18 05:30 Alkaline Phosphatase 105 U/L (45-117) 12/30/18 05:30 Albumin 3.9 g/dl (3.4-5.0) 12/30/18 05:30 INR, PTT INR 1.02 (0.83-1.09) 12/29/18 16:02 Assessment/Plan ASSESSMENT: 1. Acute on chronic class I-II NYHA classification LV failure related to diastolic LV dysfunction, resolving 2. CAD with evidnce of demand ischemic injury angina pectoris 3. PSVT currently in NSR 4. Hypertensive cardiomyopathy, not at goal 5. DM 6. Hyperlipidemia 7. Left lower extremity cellulitis PLAN: 1. Continue Lasix IV with close monitoring of renal function and electrolytes 2. Continue ASA 3. Continue Carvedilol and titrate dosage as needed 4. Continue Cozaar and titrate dosage as needed 5. Continue Crestor 6. Antibiotics as per the primary team 7. As outlined in prior notes transfer to floor care from the cardiovascular point of view Naina Nevarez MD
[2019-01-02] MEDS: ROSUVASTATIN CA 10 MG TABLET (FP) PO SCH (09:20)
[2019-01-02] MEDS: FUROSEMIDE 40 MG/4 ML INJECTABLE VIAL IVPUSH SCH (09:20)
[2019-01-02] MEDS: HEPARIN NA (PORCINE) 5,000 UNITS/ML 1ML VIAL SQ SCH ×2 (09:20→21:38)
[2019-01-02] MEDS: FLUoxetine HCL 10 MG CAPSULE (FP) PO SCH (09:21)
[2019-01-02] MEDS: CARVEDILOL 12.5 MG TABLET (FP) PO SCH ×2 (09:21→21:38)
[2019-01-02] MEDS: ASPIRIN COATED 81 MG TABLET.EC PO SCH (09:24)
--- NOTE | 2019-01-02 11:19 | PN ---
Progress Note (short form) - Note Progress Note: PULMONARY Awake/alert/oob to chair offers no complaints subjective improvement VSS Constitutional: Yes: No Distress, Calm Eyes: Yes: Conjunctiva Clear, EOM Intact HENT: Yes: Atraumatic, Normocephalic Neck: Yes: Supple, Trachea Midline Cardiovascular: Yes: Regular Rate and Rhythm Respiratory: Yes: Diminished, On Nasal O2, Rhonchi, SOB, SOB on Exertion. No: Accessory Muscle Use, Rales, Stridor, Tachypnea, Wheezes ...Inspection: Yes: WNL ...Clubbing: No Gastrointestinal: Yes: Normal Bowel Sounds, Soft, Abdomen, Obese Renal/: Yes: WNL Musculoskeletal: Yes: WNL Extremities: Yes: Erythema Edema: Yes Peripheral Pulses WNL: Yes Integumentary: Yes: Erythema, Skin Tear Neurological: Yes: WNL, Alert, Oriented ...Motor Strength: WNL Psychiatric: Yes: WNL, Alert, Oriented Labs/notes/images/labs/meds reviewed Problem List - Problems (1) Ovarian cancer Code(s): C56.9 - MALIGNANT NEOPLASM OF UNSPECIFIED OVARY (2) Mediastinal adenopathy Code(s): R59.0 - LOCALIZED ENLARGED LYMPH NODES (3) Morbid obesity Code(s): E66.01 - MORBID (SEVERE) OBESITY DUE TO EXCESS CALORIES (4) Diabetes Code(s): E11.9 - TYPE 2 DIABETES MELLITUS WITHOUT COMPLICATIONS Qualifiers: Diabetes mellitus type: type 2 (5) HTN (hypertension) Code(s): I10 - ESSENTIAL (PRIMARY) HYPERTENSION Qualifiers: Hypertension type: essential hypertension Qualified Code(s): I10 - Essential (primary) hypertension (6) Pulmonary edema Code(s): J81.1 - CHRONIC PULMONARY EDEMA Qualifiers: Chronicity: acute Qualified Code(s): J81.0 - Acute pulmonary edema (7) Shortness of breath Code(s): R06.02 - SHORTNESS OF BREATH (8) Tachycardia Code(s): R00.0 - TACHYCARDIA, UNSPECIFIED Clinical concern for OSAS no clinical suspicion of PE at this point R/O LLL VTE Will need sleep work up after D/C IV Lasix BD TX PRN No indication for systemic steroids Check LE Doppler when done ABX per ID O2 as needed Daily weights Glycemic control Kirill BRADEN MD
--- NOTE | 2019-01-02 12:55 | PN ---
Progress Note, Physician History of Present Illness: stable doing well leg still red and tender - Current Medication List Current Medications: Active Medications Albuterol/Ipratropium (Duoneb -) 1 amp NEB Q6H PRN PRN Reason: SHORTNESS OF BREATH Last Admin: 12/31/18 07:29 Dose: 1 amp Aspirin (Ecotrin -) 81 mg PO DAILY [facility] Last Admin: 01/02/19 09:24 Dose: 81 mg Carvedilol (Coreg -) 25 mg PO BID [facility] Fluoxetine HCl (Prozac -) 10 mg PO DAILY [facility] Last Admin: 01/02/19 09:21 Dose: 10 mg Furosemide (Lasix Injection -) 40 mg IVPUSH DAILY [facility] Last Admin: 01/02/19 09:20 Dose: 40 mg Glipizide (Glucotrol Xl -) 10 mg PO BIDI [facility] Last Admin: 01/02/19 06:42 Dose: Not Given Heparin Sodium (Porcine) (Heparin -) 5,000 unit SQ BID [facility] Last Admin: 01/02/19 09:20 Dose: 5,000 unit Piperacillin Sod/Tazobactam (Sod 3.375 gm/ Dextrose) 50 mls @ 100 mls/hr IVPB Q8H-IV [facility]; Protocol Last Admin: 01/02/19 09:19 Dose: 100 mls/hr Losartan Potassium (Cozaar -) 50 mg PO DAILY [facility] Last Admin: 01/02/19 09:20 Dose: 50 mg Metformin HCl (Glucophage -) 500 mg PO BIDAC [facility] Last Admin: 01/02/19 06:42 Dose: 500 mg Rosuvastatin Calcium (Crestor -) 10 mg PO DAILY [facility] Last Admin: 01/02/19 09:20 Dose: 10 mg - Objective Vital Signs: Vital Signs Temperature 97.5 F L 01/02/19 05:56 Pulse Rate 70 01/02/19 05:56 Respiratory Rate 20 01/02/19 05:56 Blood Pressure 157/82 01/02/19 05:56 O2 Sat by Pulse Oximetry (%) 95 01/02/19 09:00 Constitutional: Yes: No Distress, Calm Cardiovascular: Yes: Regular Rate and Rhythm Respiratory: Yes: Regular, CTA Bilaterally Gastrointestinal: Yes: Normal Bowel Sounds, Soft Musculoskeletal: Yes: WNL Extremities: Yes: Erythema (improving), Other Wound/Incision: Yes: Dressing Dry and Intact Neurological: Yes: Alert, Oriented Psychiatric: Yes: Alert, Oriented Labs: CBC, BMP 12/30/18 05:30 12/31/18 05:30 INR, PTT INR 1.02 (0.83-1.09) 12/29/18 16:02 Assessment/Plan Problem List - Problems (1) Diabetes Code(s): E11.9 - TYPE 2 DIABETES MELLITUS WITHOUT COMPLICATIONS Qualifiers: Diabetes mellitus type: type 2 (2) HTN (hypertension) Code(s): I10 - ESSENTIAL (PRIMARY) HYPERTENSION Qualifiers: Hypertension type: essential hypertension Qualified Code(s): I10 - Essential (primary) hypertension (3) Pulmonary edema Code(s): J81.1 - CHRONIC PULMONARY EDEMA Qualifiers: Chronicity: acute Qualified Code(s): J81.0 - Acute pulmonary edema (4) Shortness of breath Code(s): R06.02 - SHORTNESS OF BREATH (5) Tachycardia Code(s): R00.0 - TACHYCARDIA, UNSPECIFIED left leg cellulitis infected wound left leg plan continue current mgmt await for sensitivities wound care team to see the patient rest as per the team
--- NOTE | 2019-01-02 15:17 | PN ---
Progress Note, Physician - Current Medication List Current Medications: Active Medications Albuterol/Ipratropium (Duoneb -) 1 amp NEB Q6H PRN PRN Reason: SHORTNESS OF BREATH Last Admin: 12/31/18 07:29 Dose: 1 amp Aspirin (Ecotrin -) 81 mg PO DAILY [facility] Last Admin: 01/02/19 09:24 Dose: 81 mg Carvedilol (Coreg -) 25 mg PO BID [facility] Fluoxetine HCl (Prozac -) 10 mg PO DAILY [facility] Last Admin: 01/02/19 09:21 Dose: 10 mg Furosemide (Lasix Injection -) 40 mg IVPUSH DAILY [facility] Last Admin: 01/02/19 09:20 Dose: 40 mg Glipizide (Glucotrol Xl -) 10 mg PO BIDI [facility] Last Admin: 01/02/19 06:42 Dose: Not Given Heparin Sodium (Porcine) (Heparin -) 5,000 unit SQ BID [facility] Last Admin: 01/02/19 09:20 Dose: 5,000 unit Piperacillin Sod/Tazobactam (Sod 3.375 gm/ Dextrose) 50 mls @ 100 mls/hr IVPB Q8H-IV [facility]; Protocol Last Admin: 01/02/19 09:19 Dose: 100 mls/hr Losartan Potassium (Cozaar -) 50 mg PO DAILY [facility] Last Admin: 01/02/19 09:20 Dose: 50 mg Metformin HCl (Glucophage -) 500 mg PO BIDAC [facility] Last Admin: 01/02/19 06:42 Dose: 500 mg Rosuvastatin Calcium (Crestor -) 10 mg PO DAILY [facility] Last Admin: 01/02/19 09:20 Dose: 10 mg - Objective Vital Signs: Vital Signs Temperature 98.8 F 01/02/19 15:09 Pulse Rate 79 01/02/19 15:09 Respiratory Rate 20 01/02/19 15:09 Blood Pressure 143/90 01/02/19 15:09 O2 Sat by Pulse Oximetry (%) 95 01/02/19 09:00 Constitutional: Yes: No Distress HENT: Yes: Atraumatic Cardiovascular: Yes: Regular Rate and Rhythm Respiratory: Yes: CTA Bilaterally Gastrointestinal: Yes: Normal Bowel Sounds Extremities: Yes: Other (cellulitis b/l tad) Edema: Yes Edema: LLE: 1+, RLE: 1+ Neurological: Yes: Alert, Oriented Labs: CBC, BMP 12/30/18 05:30 12/31/18 05:30 INR, PTT INR 1.02 (0.83-1.09) 12/29/18 16:02 Problem List - Problems (1) HTN (hypertension) Assessment/Plan: monitor continue home meds Code(s): I10 - ESSENTIAL (PRIMARY) HYPERTENSION Qualifiers: Hypertension type: essential hypertension Qualified Code(s): I10 - Essential (primary) hypertension (2) Diabetes Assessment/Plan: bgms home meds Code(s): E11.9 - TYPE 2 DIABETES MELLITUS WITHOUT COMPLICATIONS Qualifiers: Diabetes mellitus type: type 2 (3) Pulmonary edema Assessment/Plan: iv lasix Code(s): J81.1 - CHRONIC PULMONARY EDEMA Qualifiers: Chronicity: acute Qualified Code(s): J81.0 - Acute pulmonary edema (4) Shortness of breath Assessment/Plan: iv lasix duo nebs Code(s): R06.02 - SHORTNESS OF BREATH (5) Cellulitis Assessment/Plan: left leg no dvt on iv abx Code(s): L03.90 - CELLULITIS, UNSPECIFIED (6) DVT prophylaxis Code(s): [id number] - (7) Morbid obesity Code(s): E66.01 - MORBID (SEVERE) OBESITY DUE TO EXCESS CALORIES (8) Ovarian cancer Code(s): C56.9 - MALIGNANT NEOPLASM OF UNSPECIFIED OVARY
[2019-01-03] MEDS ORDERED: PIPERACILLIN/TAZOBACTAM 3.375 GM VIAL IVPB ONE ×3 (01:05→16:48)
[2019-01-03] MEDS ORDERED: DEXTROSE 5%-WATER - 50 ML IVPB ONE ×3 (01:06→16:48)
[2019-01-03] MEDS: PIPERACILLIN/TAZOB 3.375 GM 3.375 GM in DEXTROSE 5%-WATER - 50 ML IVPB SCH ×3 (01:26→17:20)
[2019-01-03] MEDS ORDERED: PT OWN MED DRAWER 7, Y5N ONE ×5 (06:03→15:58)
[2019-01-03] MEDS: metFORMIN HCL 500 MG TABLET (FP) PO SCH ×2 (06:13→15:53)
[2019-01-03] MEDS: glipiZIDE-XL 10 MG TAB.ER.24 (FP) PO SCH ×2 (06:13→15:53)
--- NOTE | 2019-01-03 07:18 | PN ---
Progress Note (short form) - Note Progress Note: Chief Complaint: Events noted, notes reviewed, sitting in a chair, dyspnea persists but improved, denies any chest pain History of Present Illness: Seen and examined on telemetry. Events noted, notes reviewed, sitting in a chair , dyspnea persists but improved, denies any chest pain Echo: Normal LV and RV size and function, mild LAE, mild MR, TR, mild mean gradient 15.5 mmHg, ELADIO 1.2 cm^2 Current Medications: Current Medications Albuterol/Ipratropium (Duoneb -) 1 amp NEB Q6H PRN PRN Reason: SHORTNESS OF BREATH Last Admin: 12/31/18 07:29 Dose: 1 amp Aspirin (Ecotrin -) 81 mg PO DAILY [facility] Last Admin: 01/02/19 09:24 Dose: 81 mg Carvedilol (Coreg -) 25 mg PO BID [facility] Last Admin: 01/02/19 21:38 Dose: 25 mg Fluoxetine HCl (Prozac -) 10 mg PO DAILY [facility] Last Admin: 01/02/19 09:21 Dose: 10 mg Furosemide (Lasix Injection -) 40 mg IVPUSH DAILY [facility] Last Admin: 01/02/19 09:20 Dose: 40 mg Glipizide (Glucotrol Xl -) 10 mg PO BIDI [facility] Last Admin: 01/03/19 06:13 Dose: 10 mg Heparin Sodium (Porcine) (Heparin -) 5,000 unit SQ BID [facility] Last Admin: 01/02/19 21:38 Dose: 5,000 unit Piperacillin Sod/Tazobactam (Sod 3.375 gm/ Dextrose) 50 mls @ 100 mls/hr IVPB Q8H-IV [facility]; Protocol Last Admin: 01/03/19 01:26 Dose: 100 mls/hr Losartan Potassium (Cozaar -) 50 mg PO DAILY [facility] Last Admin: 01/02/19 09:20 Dose: 50 mg Metformin HCl (Glucophage -) 500 mg PO BIDAC [facility] Last Admin: 01/03/19 06:13 Dose: 500 mg Rosuvastatin Calcium (Crestor -) 10 mg PO DAILY [facility] Last Admin: 01/02/19 09:20 Dose: 10 mg Review of Systems Cardiovascular: As noted above Respiratory: reports: Cough but no Sputum Production Gastrointestinal: denies: Nausea, Vomiting, Diarrhea, Constipation or Abdominal Discomfort Musculoskeletal: No Symptoms Reported Endocrine: No Symptoms Reported - Objective Vital Signs: Last Vital Signs Temp Pulse Resp BP Pulse Ox 98.8 F 79 18 143/90 99 01/02/19 15:09 01/02/19 15:09 01/02/19 21:00 01/02/19 15:09 01/02/19 21:00 Intake & Output 12/31/18 01/01/19 01/02/19 01/03/19 23:59 23:59 23:59 23:59 Intake Total 670 1320 Balance 670 1320 Weight 233 lb 233 lb 231 lb 12.8 oz 231 lb 3.2 oz Neck: Supple Negative JVD No bruit Respiratory: Diminished breath sounds at the bases Cardiovascular: S1, S2 Regular Rate Rhythm Grade 2/6 MUNDO Gastrointestinal: Soft Benign Normal Bowel Sounds Ext: Edema Labs: CBC, BMP 12/30/18 05:30 12/31/18 05:30 Hepatic Panel Total Bilirubin 0.8 mg/dL (0.2-1) 12/30/18 05:30 AST 17 U/L (15-37) 12/30/18 05:30 ALT 21 U/L (13-61) 12/30/18 05:30 Alkaline Phosphatase 105 U/L (45-117) 12/30/18 05:30 Albumin 3.9 g/dl (3.4-5.0) 12/30/18 05:30 INR, PTT INR 1.02 (0.83-1.09) 12/29/18 16:02 Assessment/Plan ASSESSMENT: 1. Acute on chronic class I-II NYHA classification LV failure related to diastolic LV dysfunction, resolving 2. CAD with evidnce of demand ischemic injury angina pectoris 3. PSVT currently in NSR 4. Hypertensive cardiomyopathy, not at goal 5. DM 6. Hyperlipidemia 7. Left lower extremity cellulitis PLAN: 1. Continue Lasix IV and titrate dose with close monitoring of renal function and electrolytes 2. Continue ASA 3. Continue Carvedilol 4. Continue Cozaar and titrate dosage as needed 5. Continue Crestor 6. Antibiotics as per the primary team 7. Repeat chest x-ray 8. As outlined in prior notes transfer to floor care from the cardiovascular point of view Naina Nevarez MD
[2019-01-03] MEDS: HEPARIN NA (PORCINE) 5,000 UNITS/ML 1ML VIAL SQ SCH ×2 (09:54→21:51)
[2019-01-03] MEDS: ASPIRIN COATED 81 MG TABLET.EC PO SCH (09:54)
[2019-01-03] MEDS: CARVEDILOL 12.5 MG TABLET (FP) PO SCH ×2 (09:54→21:50)
[2019-01-03] MEDS: LOSARTAN POTASSIUM 50 MG TABLET (FP) PO SCH (09:54)
[2019-01-03] MEDS: FLUoxetine HCL 10 MG CAPSULE (FP) PO SCH (09:54)
[2019-01-03] MEDS: ROSUVASTATIN CA 10 MG TABLET (FP) PO SCH (10:30)
--- NOTE | 2019-01-03 10:45 | PN ---
Progress Note, Physician History of Present Illness: pulmonary alert,feeling better,-resp distress - Current Medication List Current Medications: Active Medications Albuterol/Ipratropium (Duoneb -) 1 amp NEB Q6H PRN PRN Reason: SHORTNESS OF BREATH Last Admin: 12/31/18 07:29 Dose: 1 amp Aspirin (Ecotrin -) 81 mg PO DAILY [facility] Last Admin: 01/03/19 09:54 Dose: 81 mg Carvedilol (Coreg -) 25 mg PO BID [facility] Last Admin: 01/03/19 09:54 Dose: 25 mg Fluoxetine HCl (Prozac -) 10 mg PO DAILY [facility] Last Admin: 01/03/19 09:54 Dose: 10 mg Furosemide (Lasix Injection -) 40 mg IVPUSH BID@0600,1400 [facility] Glipizide (Glucotrol Xl -) 10 mg PO BIDI [facility] Last Admin: 01/03/19 06:13 Dose: 10 mg Heparin Sodium (Porcine) (Heparin -) 5,000 unit SQ BID [facility] Last Admin: 01/03/19 09:54 Dose: 5,000 unit Piperacillin Sod/Tazobactam (Sod 3.375 gm/ Dextrose) 50 mls @ 100 mls/hr IVPB Q8H-IV [facility]; Protocol Last Admin: 01/03/19 09:54 Dose: 100 mls/hr Losartan Potassium (Cozaar -) 100 mg PO DAILY [facility] Last Admin: 01/03/19 09:54 Dose: 100 mg Metformin HCl (Glucophage -) 500 mg PO BIDAC [facility] Last Admin: 01/03/19 06:13 Dose: 500 mg Rosuvastatin Calcium (Crestor -) 10 mg PO DAILY [facility] Last Admin: 01/03/19 10:30 Dose: 10 mg - Objective Vital Signs: Vital Signs Temperature 98.8 F 01/02/19 15:09 Pulse Rate 79 01/02/19 15:09 Respiratory Rate 18 01/02/19 21:00 Blood Pressure 143/90 01/02/19 15:09 O2 Sat by Pulse Oximetry (%) 95 01/03/19 09:00 Constitutional: Yes: Well Nourished, Calm Eyes: Yes: WNL HENT: Yes: WNL Neck: Yes: WNL Cardiovascular: Yes: Regular Rate and Rhythm, S1, S2 Respiratory: Yes: Diminished, Rhonchi (few rhonchi) Gastrointestinal: Yes: Normal Bowel Sounds, Soft Extremities: Yes: WNL, Erythema Edema: Yes Labs: CBC, BMP 12/30/18 05:30 12/31/18 05:30 INR, PTT INR 1.02 (0.83-1.09) 12/29/18 16:02 Assessment/Plan Problem List - Problems (1) Ovarian cancer Code(s): C56.9 - MALIGNANT NEOPLASM OF UNSPECIFIED OVARY (2) Mediastinal adenopathy Code(s): R59.0 - LOCALIZED ENLARGED LYMPH NODES (3) Morbid obesity Code(s): E66.01 - MORBID (SEVERE) OBESITY DUE TO EXCESS CALORIES (4) Diabetes Code(s): E11.9 - TYPE 2 DIABETES MELLITUS WITHOUT COMPLICATIONS Qualifiers: Diabetes mellitus type: type 2 (5) HTN (hypertension) Code(s): I10 - ESSENTIAL (PRIMARY) HYPERTENSION Qualifiers: Hypertension type: essential hypertension Qualified Code(s): I10 - Essential (primary) hypertension (6) Pulmonary edema Code(s): J81.1 - CHRONIC PULMONARY EDEMA Qualifiers: Chronicity: acute Qualified Code(s): J81.0 - Acute pulmonary edema (7) Shortness of breath Code(s): R06.02 - SHORTNESS OF BREATH (8) Tachycardia Code(s): R00.0 - TACHYCARDIA, UNSPECIFIED Assessment/Plan IMP: Clinical concern for OSAS Do not not have a clinical suspicion of PE at this point R/O LLL VTE Will need sleep work up after D/C IV Lasix BD TX PRN ABX per ID O2 as needed Daily weights sleep screen DR CARBAJAL
--- NOTE | 2019-01-03 13:31 | PN ---
Progress Note (short form) - Note Progress Note: Vascular Surgery Pt seen and examined. RLE cellulitis. open blister over right mallelous. can place silvadene to area daily. Chad tavares DO
[2019-01-03] MEDS: FUROSEMIDE 40 MG/4 ML INJECTABLE VIAL IVPUSH SCH (13:37)
--- NOTE | 2019-01-03 13:50 | PN ---
Progress Note, Physician History of Present Illness: stable no issues leg improving wound care noted - Current Medication List Current Medications: Active Medications Albuterol/Ipratropium (Duoneb -) 1 amp NEB Q6H PRN PRN Reason: SHORTNESS OF BREATH Last Admin: 12/31/18 07:29 Dose: 1 amp Aspirin (Ecotrin -) 81 mg PO DAILY [facility] Last Admin: 01/03/19 09:54 Dose: 81 mg Carvedilol (Coreg -) 25 mg PO BID [facility] Last Admin: 01/03/19 09:54 Dose: 25 mg Fluoxetine HCl (Prozac -) 10 mg PO DAILY [facility] Last Admin: 01/03/19 09:54 Dose: 10 mg Furosemide (Lasix Injection -) 40 mg IVPUSH BID@0600,1400 [facility] Last Admin: 01/03/19 13:37 Dose: 40 mg Glipizide (Glucotrol Xl -) 10 mg PO BIDI [facility] Last Admin: 01/03/19 06:13 Dose: 10 mg Heparin Sodium (Porcine) (Heparin -) 5,000 unit SQ BID [facility] Last Admin: 01/03/19 09:54 Dose: 5,000 unit Piperacillin Sod/Tazobactam (Sod 3.375 gm/ Dextrose) 50 mls @ 100 mls/hr IVPB Q8H-IV [facility]; Protocol Last Admin: 01/03/19 09:54 Dose: 100 mls/hr Losartan Potassium (Cozaar -) 100 mg PO DAILY [facility] Last Admin: 01/03/19 09:54 Dose: 100 mg Metformin HCl (Glucophage -) 500 mg PO BIDAC [facility] Last Admin: 01/03/19 06:13 Dose: 500 mg Rosuvastatin Calcium (Crestor -) 10 mg PO DAILY [facility] Last Admin: 01/03/19 10:30 Dose: 10 mg Silver Sulfadiazine (Silvadene -) 1 applic TP DAILY [facility] - Objective Vital Signs: Vital Signs Temperature 98.2 F 01/03/19 10:00 Pulse Rate 81 01/03/19 10:00 Respiratory Rate 20 01/03/19 10:00 Blood Pressure 142/83 01/03/19 10:00 O2 Sat by Pulse Oximetry (%) 95 01/03/19 09:00 Constitutional: Yes: No Distress, Calm Cardiovascular: Yes: Regular Rate and Rhythm Respiratory: Yes: Regular, CTA Bilaterally Gastrointestinal: Yes: Normal Bowel Sounds, Soft Musculoskeletal: Yes: WNL Extremities: Yes: Other Wound/Incision: Yes: Dressing Dry and Intact, Draining (improving) Neurological: Yes: Alert, Oriented Psychiatric: Yes: Alert, Oriented Labs: CBC, BMP 12/30/18 05:30 12/31/18 05:30 INR, PTT INR 1.02 (0.83-1.09) 12/29/18 16:02 Assessment/Plan Problem List - Problems (1) Diabetes Code(s): E11.9 - TYPE 2 DIABETES MELLITUS WITHOUT COMPLICATIONS Qualifiers: Diabetes mellitus type: type 2 (2) HTN (hypertension) Code(s): I10 - ESSENTIAL (PRIMARY) HYPERTENSION Qualifiers: Hypertension type: essential hypertension Qualified Code(s): I10 - Essential (primary) hypertension (3) Pulmonary edema Code(s): J81.1 - CHRONIC PULMONARY EDEMA Qualifiers: Chronicity: acute Qualified Code(s): J81.0 - Acute pulmonary edema (4) Shortness of breath Code(s): R06.02 - SHORTNESS OF BREATH (5) Tachycardia Code(s): R00.0 - TACHYCARDIA, UNSPECIFIED left leg cellulitis infected wound left leg plan continue current mgmt organisms noted rest as per the tem patient doing well
[2019-01-03] MEDS: SILVER SULFADIAZINE 1% TOP CREAM 50 GM JAR TP SCH (14:10)
--- NOTE | 2019-01-03 16:21 | PN ---
Progress Note, Physician History of Present Illness: stable - Current Medication List Current Medications: Active Medications Albuterol/Ipratropium (Duoneb -) 1 amp NEB Q6H PRN PRN Reason: SHORTNESS OF BREATH Last Admin: 12/31/18 07:29 Dose: 1 amp Aspirin (Ecotrin -) 81 mg PO DAILY [facility] Last Admin: 01/03/19 09:54 Dose: 81 mg Carvedilol (Coreg -) 25 mg PO BID [facility] Last Admin: 01/03/19 09:54 Dose: 25 mg Fluoxetine HCl (Prozac -) 10 mg PO DAILY [facility] Last Admin: 01/03/19 09:54 Dose: 10 mg Furosemide (Lasix Injection -) 40 mg IVPUSH BID@0600,1400 [facility] Last Admin: 01/03/19 13:37 Dose: 40 mg Glipizide (Glucotrol Xl -) 10 mg PO BIDI [facility] Last Admin: 01/03/19 15:53 Dose: 10 mg Heparin Sodium (Porcine) (Heparin -) 5,000 unit SQ BID [facility] Last Admin: 01/03/19 09:54 Dose: 5,000 unit Piperacillin Sod/Tazobactam (Sod 3.375 gm/ Dextrose) 50 mls @ 100 mls/hr IVPB Q8H-[facility]; Protocol Last Admin: 01/03/19 09:54 Dose: 100 mls/hr Losartan Potassium (Cozaar -) 100 mg PO DAILY [facility] Last Admin: 01/03/19 09:54 Dose: 100 mg Metformin HCl (Glucophage -) 500 mg PO BIDAC [facility] Last Admin: 01/03/19 15:53 Dose: 500 mg Rosuvastatin Calcium (Crestor -) 10 mg PO DAILY [facility] Last Admin: 01/03/19 10:30 Dose: 10 mg Silver Sulfadiazine (Silvadene -) 1 applic TP DAILY [facility] Last Admin: 01/03/19 14:10 Dose: 1 appful - Objective Vital Signs: Vital Signs Temperature 97.9 F 01/03/19 14:08 Pulse Rate 84 01/03/19 14:08 Respiratory Rate 24 H 01/03/19 14:08 Blood Pressure 133/78 01/03/19 14:08 O2 Sat by Pulse Oximetry (%) 95 01/03/19 09:00 Constitutional: Yes: No Distress HENT: Yes: Atraumatic Neck: Yes: Supple Cardiovascular: Yes: Regular Rate and Rhythm Respiratory: Yes: Rhonchi Gastrointestinal: Yes: Normal Bowel Sounds Extremities: Yes: Other (cellulitis improving) Edema: Yes Edema: LLE: 1+, RLE: 1+ Neurological: Yes: Alert, Oriented Labs: CBC, BMP 12/30/18 05:30 12/31/18 05:30 INR, PTT INR 1.02 (0.83-1.09) 12/29/18 16:02 Problem List - Problems (1) HTN (hypertension) Assessment/Plan: monitor continue home meds Code(s): I10 - ESSENTIAL (PRIMARY) HYPERTENSION Qualifiers: Hypertension type: essential hypertension Qualified Code(s): I10 - Essential (primary) hypertension (2) Diabetes Assessment/Plan: bgms home meds Code(s): E11.9 - TYPE 2 DIABETES MELLITUS WITHOUT COMPLICATIONS Qualifiers: Diabetes mellitus type: type 2 (3) Pulmonary edema Assessment/Plan: iv lasix Code(s): J81.1 - CHRONIC PULMONARY EDEMA Qualifiers: Chronicity: acute Qualified Code(s): J81.0 - Acute pulmonary edema (4) Shortness of breath Assessment/Plan: iv lasix duo nebs Code(s): R06.02 - SHORTNESS OF BREATH (5) Cellulitis Assessment/Plan: left leg no dvt on iv abx Code(s): L03.90 - CELLULITIS, UNSPECIFIED (6) DVT prophylaxis Code(s): [id number] - (7) Morbid obesity Code(s): E66.01 - MORBID (SEVERE) OBESITY DUE TO EXCESS CALORIES (8) Ovarian cancer Code(s): C56.9 - MALIGNANT NEOPLASM OF UNSPECIFIED OVARY
[2019-01-03] MEDS: guaiFENesin/D-METHORPHAN HB 10 ML UNIT-DOSE CUPS PO PRN (21:59)
[2019-01-04] MEDS ORDERED: PIPERACILLIN/TAZOBACTAM 3.375 GM VIAL IVPB ONE ×3 (00:41→17:11)
[2019-01-04] MEDS ORDERED: DEXTROSE 5%-WATER - 50 ML IVPB ONE ×3 (00:42→17:11)
[2019-01-04] MEDS: PIPERACILLIN/TAZOB 3.375 GM 3.375 GM in DEXTROSE 5%-WATER - 50 ML IVPB SCH ×3 (02:17→18:40)
[2019-01-04] MEDS ORDERED: PT OWN MED DRAWER 7, Y5N ONE ×3 (05:58→17:12)
[2019-01-04] MEDS: FUROSEMIDE 40 MG/4 ML INJECTABLE VIAL IVPUSH SCH ×2 (06:28→20:10)
[2019-01-04] MEDS: metFORMIN HCL 500 MG TABLET (FP) PO SCH ×2 (06:28→17:13)
[2019-01-04] MEDS: glipiZIDE-XL 10 MG TAB.ER.24 (FP) PO SCH ×2 (06:28→17:13)
--- NOTE | 2019-01-04 06:40 | PN ---
Progress Note (short form) - Note Progress Note: Chief Complaint: Events noted, notes reviewed, sitting in a chair, dyspnea persists but improved, denies any chest pain History of Present Illness: Seen and examined on telemetry. Events noted, notes reviewed, sitting in a chair , dyspnea persists but improved, denies any chest pain Echo: Normal LV and RV size and function, mild LAE, mild MR, TR, mild mean gradient 15.5 mmHg, ELADIO 1.2 cm^2 Chest x-ray noted Current Medications: Current Medications Albuterol/Ipratropium (Duoneb -) 1 amp NEB Q6H PRN PRN Reason: SHORTNESS OF BREATH Aspirin (Ecotrin -) 81 mg PO DAILY [facility] Carvedilol (Coreg -) 25 mg PO BID [facility] Last Admin: 01/03/19 21:50 Dose: 25 mg Fluoxetine HCl (Prozac -) 10 mg PO DAILY [facility] Furosemide (Lasix Injection -) 40 mg IVPUSH BID@0600,1400 [facility] Last Admin: 01/04/19 06:28 Dose: 40 mg Glipizide (Glucotrol Xl -) 10 mg PO BIDI [facility] Last Admin: 01/04/19 06:28 Dose: 10 mg Guaifenesin (Robitussin Dm -) 10 ml PO Q6H PRN PRN Reason: COUGH Last Admin: 01/03/19 21:59 Dose: 10 ml Heparin Sodium (Porcine) (Heparin -) 5,000 unit SQ BID [facility] Last Admin: 01/03/19 21:51 Dose: 5,000 unit Piperacillin Sod/Tazobactam (Sod 3.375 gm/ Dextrose) 50 mls @ 100 mls/hr IVPB Q8H-[facility]; Protocol Last Admin: 01/04/19 02:17 Dose: 100 mls/hr Losartan Potassium (Cozaar -) 100 mg PO DAILY [facility] Last Admin: 01/03/19 09:54 Dose: 100 mg Metformin HCl (Glucophage -) 500 mg PO BIDAC [facility] Last Admin: 01/04/19 06:28 Dose: 500 mg Rosuvastatin Calcium (Crestor -) 10 mg PO DAILY [facility] Silver Sulfadiazine (Silvadene -) 1 applic TP DAILY [facility] Last Admin: 01/03/19 14:10 Dose: 1 appful Review of Systems Cardiovascular: As noted above Respiratory: reports: Cough but no Sputum Production Gastrointestinal: denies: Nausea, Vomiting, Diarrhea, Constipation or Abdominal Discomfort Musculoskeletal: No Symptoms Reported Endocrine: No Symptoms Reported - Objective Vital Signs: Last Vital Signs Temp Pulse Resp BP Pulse Ox 97.5 F L 78 20 144/70 95 01/04/19 02:00 01/04/19 02:00 01/04/19 02:00 01/04/19 02:00 01/03/19 21:00 Intake & Output 01/01/19 01/02/19 01/03/19 01/04/19 23:59 23:59 23:59 23:59 Intake Total 670 1320 780 250 Balance 670 1320 780 250 Weight 233 lb 231 lb 12.8 oz 231 lb 3.2 oz Neck: Supple Negative JVD No bruit Respiratory: Diminished breath sounds at the bases Cardiovascular: S1, S2 Regular Rate Rhythm Grade 2/6 MUNDO Gastrointestinal: Soft Benign Normal Bowel Sounds Ext: Edema Labs: CBC, BMP 01/04/19 13:30 01/04/19 13:30 Hepatic Panel Total Bilirubin 0.5 mg/dL (0.2-1) 01/04/19 13:30 AST 15 U/L (15-37) 01/04/19 13:30 ALT 24 U/L (13-61) 01/04/19 13:30 Alkaline Phosphatase 87 U/L (45-117) 01/04/19 13:30 Albumin 3.4 g/dl (3.4-5.0) 01/04/19 13:30 INR, PTT INR 1.02 (0.83-1.09) 12/29/18 16:02 Assessment/Plan ASSESSMENT: 1. Acute on chronic class I-II NYHA classification LV failure related to diastolic LV dysfunction, resolving 2. CAD with evidence of demand ischemic injury angina pectoris 3. PSVT currently in NSR 4. Hypertensive cardiomyopathy, not at goal, improved 5. DM 6. Hyperlipidemia 7. Left lower extremity cellulitis PLAN: 1. Continue Lasix but initiate PO/add Aldactone and titrate dose with close monitoring of renal function and electrolytes 2. Continue ASA 3. Continue Carvedilol 4. Continue Cozaar 5. Continue Crestor 6. Antibiotics as per the primary team Naina Nevarez MD
[2019-01-04] MEDS: HEPARIN NA (PORCINE) 5,000 UNITS/ML 1ML VIAL SQ SCH ×2 (10:17→21:58)
[2019-01-04] MEDS: CARVEDILOL 12.5 MG TABLET (FP) PO SCH ×2 (10:18→21:58)
[2019-01-04] MEDS: LOSARTAN POTASSIUM 50 MG TABLET (FP) PO SCH (10:19)
[2019-01-04] MEDS: ASPIRIN COATED 81 MG TABLET.EC PO SCH (10:19)
[2019-01-04] MEDS: ROSUVASTATIN CA 10 MG TABLET (FP) PO SCH (10:19)
[2019-01-04] MEDS: SILVER SULFADIAZINE 1% TOP CREAM 50 GM JAR TP SCH (10:20)
[2019-01-04] MEDS: FLUoxetine HCL 10 MG CAPSULE (FP) PO SCH (10:21)
--- NOTE | 2019-01-04 10:34 | PN ---
Progress Note (short form) - Note Progress Note: PULMONARY States breathing better today. No chest pain, cough or wheezing. Leg swelling improving. Vital Signs Period Temp Pulse Resp BP Sys/Rivera Pulse Ox Last 24 Hr 97.5 F-98.0 F 67-84 20-24 133-172/70-94 95 Gen: NAD at rest Heart: RRR Lung: decreased breath sounds at the bases Abd: soft, nontender Ext: + edema CBC, BMP 12/30/18 05:30 12/31/18 05:30 Active Medications Albuterol/Ipratropium (Duoneb -) 1 amp NEB Q6H PRN PRN Reason: SHORTNESS OF BREATH Aspirin (Ecotrin -) 81 mg PO DAILY [facility] Last Admin: 01/04/19 10:19 Dose: 81 mg Carvedilol (Coreg -) 25 mg PO BID [facility] Last Admin: 01/04/19 10:18 Dose: 25 mg Fluoxetine HCl (Prozac -) 10 mg PO DAILY [facility] Last Admin: 01/04/19 10:21 Dose: 10 mg Furosemide (Lasix Injection -) 40 mg IVPUSH BID@0600,1400 [facility] Last Admin: 01/04/19 06:28 Dose: 40 mg Glipizide (Glucotrol Xl -) 10 mg PO BIDI [facility] Last Admin: 01/04/19 06:28 Dose: 10 mg Guaifenesin (Robitussin Dm -) 10 ml PO Q6H PRN PRN Reason: COUGH Last Admin: 01/03/19 21:59 Dose: 10 ml Heparin Sodium (Porcine) (Heparin -) 5,000 unit SQ BID [facility] Last Admin: 01/04/19 10:17 Dose: 5,000 unit Piperacillin Sod/Tazobactam (Sod 3.375 gm/ Dextrose) 50 mls @ 100 mls/hr IVPB Q8H-[facility]; Protocol Last Admin: 01/04/19 10:20 Dose: 100 mls/hr Losartan Potassium (Cozaar -) 100 mg PO DAILY [facility] Last Admin: 01/04/19 10:19 Dose: 100 mg Metformin HCl (Glucophage -) 500 mg PO BIDAC [facility] Last Admin: 01/04/19 06:28 Dose: 500 mg Rosuvastatin Calcium (Crestor -) 10 mg PO DAILY [facility] Last Admin: 01/04/19 10:19 Dose: 10 mg Silver Sulfadiazine (Silvadene -) 1 applic TP DAILY [facility] Last Admin: 01/04/19 10:20 Dose: 1 appful A/P Acute on Chronic Diastolic Heart Failure CAD +Troponins likely Demand Ischemia Cellulitis DM Hyperlipidemia Suspect AMAYA - continue lasix - monitor urine output, creatinine - daily weights - continue antibiotics - O2 to keep SpO2 >90% - inhaled brnochodilators - outpt PFTs, PSG - DVT prophylaxis
--- NOTE | 2019-01-04 12:32 | PN ---
Progress Note, Physician History of Present Illness: stable - Current Medication List Current Medications: Active Medications Albuterol/Ipratropium (Duoneb -) 1 amp NEB Q6H PRN PRN Reason: SHORTNESS OF BREATH Aspirin (Ecotrin -) 81 mg PO DAILY [facility] Last Admin: 01/04/19 10:19 Dose: 81 mg Carvedilol (Coreg -) 25 mg PO BID [facility] Last Admin: 01/04/19 10:18 Dose: 25 mg Fluoxetine HCl (Prozac -) 10 mg PO DAILY [facility] Last Admin: 01/04/19 10:21 Dose: 10 mg Furosemide (Lasix Injection -) 40 mg IVPUSH BID@0600,1400 [facility] Last Admin: 01/04/19 06:28 Dose: 40 mg Glipizide (Glucotrol Xl -) 10 mg PO BIDI [facility] Last Admin: 01/04/19 06:28 Dose: 10 mg Guaifenesin (Robitussin Dm -) 10 ml PO Q6H PRN PRN Reason: COUGH Last Admin: 01/03/19 21:59 Dose: 10 ml Heparin Sodium (Porcine) (Heparin -) 5,000 unit SQ BID [facility] Last Admin: 01/04/19 10:17 Dose: 5,000 unit Piperacillin Sod/Tazobactam (Sod 3.375 gm/ Dextrose) 50 mls @ 100 mls/hr IVPB Q8H-IV [facility]; Protocol Last Admin: 01/04/19 10:20 Dose: 100 mls/hr Losartan Potassium (Cozaar -) 100 mg PO DAILY [facility] Last Admin: 01/04/19 10:19 Dose: 100 mg Metformin HCl (Glucophage -) 500 mg PO BIDAC [facility] Last Admin: 01/04/19 06:28 Dose: 500 mg Rosuvastatin Calcium (Crestor -) 10 mg PO DAILY [facility] Last Admin: 01/04/19 10:19 Dose: 10 mg Silver Sulfadiazine (Silvadene -) 1 applic TP DAILY [facility] Last Admin: 01/04/19 10:20 Dose: 1 appful - Objective Vital Signs: Vital Signs Temperature 97.6 F 01/04/19 06:00 Pulse Rate 67 01/04/19 06:00 Respiratory Rate 20 01/04/19 06:00 Blood Pressure 149/76 01/04/19 06:00 O2 Sat by Pulse Oximetry (%) 95 01/03/19 21:00 Constitutional: Yes: No Distress HENT: Yes: Atraumatic Neck: Yes: Supple Cardiovascular: Yes: Regular Rate and Rhythm Respiratory: Yes: CTA Bilaterally Gastrointestinal: Yes: Normal Bowel Sounds Extremities: Yes: WNL Edema: No Peripheral Pulses WNL: Yes Neurological: Yes: Alert, Oriented Labs: CBC, BMP 12/30/18 05:30 12/31/18 05:30 INR, PTT INR 1.02 (0.83-1.09) 12/29/18 16:02 Problem List - Problems (1) HTN (hypertension) Assessment/Plan: monitor continue home meds Code(s): I10 - ESSENTIAL (PRIMARY) HYPERTENSION Qualifiers: Hypertension type: essential hypertension Qualified Code(s): I10 - Essential (primary) hypertension (2) Diabetes Assessment/Plan: bgms home meds Code(s): E11.9 - TYPE 2 DIABETES MELLITUS WITHOUT COMPLICATIONS Qualifiers: Diabetes mellitus type: type 2 (3) Pulmonary edema Assessment/Plan: iv lasix Code(s): J81.1 - CHRONIC PULMONARY EDEMA Qualifiers: Chronicity: acute Qualified Code(s): J81.0 - Acute pulmonary edema (4) Shortness of breath Assessment/Plan: iv lasix duo nebs Code(s): R06.02 - SHORTNESS OF BREATH (5) Cellulitis Assessment/Plan: left leg no dvt on iv abx cxs noted Code(s): L03.90 - CELLULITIS, UNSPECIFIED (6) DVT prophylaxis Code(s): [id number] - (7) Morbid obesity Code(s): E66.01 - MORBID (SEVERE) OBESITY DUE TO EXCESS CALORIES (8) Ovarian cancer Code(s): C56.9 - MALIGNANT NEOPLASM OF UNSPECIFIED OVARY
--- NOTE | 2019-01-04 13:26 | PN ---
Progress Note, Physician History of Present Illness: leg improving no complaints son in the room - Current Medication List Current Medications: Active Medications Albuterol/Ipratropium (Duoneb -) 1 amp NEB Q6H PRN PRN Reason: SHORTNESS OF BREATH Aspirin (Ecotrin -) 81 mg PO DAILY [facility] Last Admin: 01/04/19 10:19 Dose: 81 mg Carvedilol (Coreg -) 25 mg PO BID [facility] Last Admin: 01/04/19 10:18 Dose: 25 mg Fluoxetine HCl (Prozac -) 10 mg PO DAILY [facility] Last Admin: 01/04/19 10:21 Dose: 10 mg Furosemide (Lasix Injection -) 40 mg IVPUSH BID@0600,1400 [facility] Last Admin: 01/04/19 06:28 Dose: 40 mg Glipizide (Glucotrol Xl -) 10 mg PO BIDI [facility] Last Admin: 01/04/19 06:28 Dose: 10 mg Guaifenesin (Robitussin Dm -) 10 ml PO Q6H PRN PRN Reason: COUGH Last Admin: 01/03/19 21:59 Dose: 10 ml Heparin Sodium (Porcine) (Heparin -) 5,000 unit SQ BID [facility] Last Admin: 01/04/19 10:17 Dose: 5,000 unit Piperacillin Sod/Tazobactam (Sod 3.375 gm/ Dextrose) 50 mls @ 100 mls/hr IVPB Q8H-IV [facility]; Protocol Last Admin: 01/04/19 10:20 Dose: 100 mls/hr Losartan Potassium (Cozaar -) 100 mg PO DAILY [facility] Last Admin: 01/04/19 10:19 Dose: 100 mg Metformin HCl (Glucophage -) 500 mg PO BIDAC [facility] Last Admin: 01/04/19 06:28 Dose: 500 mg Rosuvastatin Calcium (Crestor -) 10 mg PO DAILY [facility] Last Admin: 01/04/19 10:19 Dose: 10 mg Silver Sulfadiazine (Silvadene -) 1 applic TP DAILY [facility] Last Admin: 01/04/19 10:20 Dose: 1 appful - Objective Vital Signs: Vital Signs Temperature 97.6 F 01/04/19 06:00 Pulse Rate 67 01/04/19 06:00 Respiratory Rate 20 01/04/19 06:00 Blood Pressure 149/76 01/04/19 06:00 O2 Sat by Pulse Oximetry (%) 95 01/03/19 21:00 Constitutional: Yes: No Distress, Calm Cardiovascular: Yes: S1, S2 Respiratory: Yes: Regular, CTA Bilaterally Gastrointestinal: Yes: Normal Bowel Sounds, Soft Musculoskeletal: Yes: WNL Extremities: Yes: Erythema, Other (improving) Integumentary: Yes: Erythema (improving) Neurological: Yes: Alert, Oriented Psychiatric: Yes: Alert, Oriented Labs: CBC, BMP 12/30/18 05:30 12/31/18 05:30 INR, PTT INR 1.02 (0.83-1.09) 12/29/18 16:02 Assessment/Plan Problem List - Problems (1) Diabetes Code(s): E11.9 - TYPE 2 DIABETES MELLITUS WITHOUT COMPLICATIONS Qualifiers: Diabetes mellitus type: type 2 (2) HTN (hypertension) Code(s): I10 - ESSENTIAL (PRIMARY) HYPERTENSION Qualifiers: Hypertension type: essential hypertension Qualified Code(s): I10 - Essential (primary) hypertension (3) Pulmonary edema Code(s): J81.1 - CHRONIC PULMONARY EDEMA Qualifiers: Chronicity: acute Qualified Code(s): J81.0 - Acute pulmonary edema (4) Shortness of breath Code(s): R06.02 - SHORTNESS OF BREATH (5) Tachycardia Code(s): R00.0 - TACHYCARDIA, UNSPECIFIED left leg cellulitis infected wound left leg plan continue current mgmt organisms noted rest as per the tem patient doing well continue abx
[2019-01-04 13:53] LABS: BASO % 0.7 % (0-2.0); EOS % 2.8 % (0-4.5); HEMATOCRIT 38.9 % (32.4-45.2); HEMOGLOBIN 12.9 GM/dL (10.7-15.3); LYMPH % 12.8 % (8-40); MCH 27.9 pg (25.7-33.7); MCHC 33.2 g/dl (32.0-36.0); MEAN CELL VOLUME 84.2 fl (80-96); MEAN PLT VOLUME 10.1 fl (7.5-11.1); MONO % 4.3 % (3.8-10.2); NEUT % 79.4 % (42.8-82.8); PLATELET COUNT 183 K/MM3 (134-434); RBC 4.62 M/mm3 (3.60-5.2); RDW 14.8 % (11.6-15.6); WHITE BLOOD COUNT 8.7 K/mm3 (4.0-10.0)
[2019-01-04 14:21] LABS: ALBUMIN 3.4 g/dl (3.4-5.0); ALK PHOS 87 U/L (45-117); ANION GAP 7 MMOL/L (8-16); BILIRUBIN,TOTAL 0.5 mg/dL (0.2-1); BLOOD UREA NITROGEN 27 mg/dL (7-18); CALCIUM 9.1 mg/dL (8.5-10.1); CHLORIDE 95 mmol/L (98-107); CO2 33 mmol/L (21-32); CREATININE 0.8 mg/dL (0.55-1.3); POTASSIUM 4.1 mmol/L (3.5-5.1); SGOT/AST 15 U/L (15-37); SGPT/ALT 24 U/L (13-61); SODIUM 135 mmol/L (136-145); TOT PROT 6.6 g/dl (6.4-8.2)
[2019-01-04 14:25] LABS: GLUCOSE,RANDOM 336 mg/dL (74-106)
[2019-01-04] MEDS: SPIRONOLACTONE 25 MG TABLET (FP) PO SCH (15:13)
[2019-01-04] MEDS: ALBUTEROL SO4 2.5/IPRATROPIUM 0.5 INH SOL 3 ML VIAL.NEB. NEB PRN (19:45)
[2019-01-04] MEDS: guaiFENesin/D-METHORPHAN HB 10 ML UNIT-DOSE CUPS PO PRN (21:59)
[2019-01-05] MEDS ORDERED: PIPERACILLIN/TAZOBACTAM 3.375 GM VIAL IVPB ONE ×3 (01:59→16:59)
[2019-01-05] MEDS ORDERED: DEXTROSE 5%-WATER - 50 ML IVPB ONE ×3 (01:59→17:00)
[2019-01-05] MEDS: PIPERACILLIN/TAZOB 3.375 GM 3.375 GM in DEXTROSE 5%-WATER - 50 ML IVPB SCH ×3 (02:31→17:04)
[2019-01-05] MEDS: metFORMIN HCL 500 MG TABLET (FP) PO SCH ×2 (06:23→17:04)
[2019-01-05] MEDS: FUROSEMIDE 40 MG TABLET (FP) PO SCH ×2 (06:24→14:52)
[2019-01-05] MEDS: glipiZIDE-XL 10 MG TAB.ER.24 (FP) PO SCH ×2 (06:24→17:04)
[2019-01-05] MEDS ORDERED: PT OWN MED DRAWER 7, Y5N ONE ×2 (09:47→16:59)
[2019-01-05] MEDS: LOSARTAN POTASSIUM 50 MG TABLET (FP) PO SCH (09:50)
[2019-01-05] MEDS: ROSUVASTATIN CA 10 MG TABLET (FP) PO SCH (09:50)
[2019-01-05] MEDS: SPIRONOLACTONE 25 MG TABLET (FP) PO SCH (09:51)
[2019-01-05] MEDS: CARVEDILOL 12.5 MG TABLET (FP) PO SCH ×2 (09:51→22:02)
[2019-01-05] MEDS: FLUoxetine HCL 10 MG CAPSULE (FP) PO SCH (09:51)
[2019-01-05] MEDS: HEPARIN NA (PORCINE) 5,000 UNITS/ML 1ML VIAL SQ SCH ×2 (09:51→22:02)
[2019-01-05] MEDS: ASPIRIN COATED 81 MG TABLET.EC PO SCH (09:51)
--- NOTE | 2019-01-05 11:53 | PN ---
Progress Note, Physician - Current Medication List Current Medications: Active Medications Albuterol/Ipratropium (Duoneb -) 1 amp NEB Q6H PRN PRN Reason: SHORTNESS OF BREATH Last Admin: 01/04/19 19:45 Dose: 1 amp Aspirin (Ecotrin -) 81 mg PO DAILY [facility] Last Admin: 01/05/19 09:51 Dose: 81 mg Carvedilol (Coreg -) 25 mg PO BID [facility] Last Admin: 01/05/19 09:51 Dose: 25 mg Fluoxetine HCl (Prozac -) 10 mg PO DAILY [facility] Last Admin: 01/05/19 09:51 Dose: 10 mg Furosemide (Lasix -) 40 mg PO BID@0600,1400 [facility] Last Admin: 01/05/19 06:24 Dose: 40 mg Glipizide (Glucotrol Xl -) 10 mg PO BIDI [facility] Last Admin: 01/05/19 06:24 Dose: 10 mg Guaifenesin (Robitussin Dm -) 10 ml PO Q6H PRN PRN Reason: COUGH Last Admin: 01/04/19 21:59 Dose: 10 ml Heparin Sodium (Porcine) (Heparin -) 5,000 unit SQ BID [facility] Last Admin: 01/05/19 09:51 Dose: 5,000 unit Piperacillin Sod/Tazobactam (Sod 3.375 gm/ Dextrose) 50 mls @ 100 mls/hr IVPB Q8H-IV [facility]; Protocol Last Admin: 01/05/19 09:50 Dose: 100 mls/hr Losartan Potassium (Cozaar -) 100 mg PO DAILY [facility] Last Admin: 01/05/19 09:50 Dose: 100 mg Metformin HCl (Glucophage -) 500 mg PO BIDAC [facility] Last Admin: 01/05/19 06:23 Dose: 500 mg Rosuvastatin Calcium (Crestor -) 10 mg PO DAILY [facility] Last Admin: 01/05/19 09:50 Dose: 10 mg Silver Sulfadiazine (Silvadene -) 1 applic TP DAILY [facility] Last Admin: 01/04/19 10:20 Dose: 1 appful Spironolactone (Aldactone -) 25 mg PO DAILY [facility] Last Admin: 01/05/19 09:51 Dose: 25 mg - Objective Vital Signs: Vital Signs Temperature 97.5 F L 01/05/19 06:00 Pulse Rate 68 01/05/19 06:00 Respiratory Rate 20 01/05/19 06:00 Blood Pressure 143/70 01/05/19 06:00 O2 Sat by Pulse Oximetry (%) 100 01/04/19 21:00 Labs: CBC, BMP 01/04/19 13:30 01/04/19 13:30 INR, PTT INR 1.02 (0.83-1.09) 12/29/18 16:02
--- NOTE | 2019-01-05 12:44 | PN ---
Progress Note, Physician History of Present Illness: pulmonary alert,feeling better,oob-chair,-cob,+cough. sleep screen AHI 36.6 - Current Medication List Current Medications: Active Medications Albuterol/Ipratropium (Duoneb -) 1 amp NEB Q6H PRN PRN Reason: SHORTNESS OF BREATH Last Admin: 01/04/19 19:45 Dose: 1 amp Aspirin (Ecotrin -) 81 mg PO DAILY [facility] Last Admin: 01/05/19 09:51 Dose: 81 mg Carvedilol (Coreg -) 25 mg PO BID [facility] Last Admin: 01/05/19 09:51 Dose: 25 mg Fluoxetine HCl (Prozac -) 10 mg PO DAILY [facility] Last Admin: 01/05/19 09:51 Dose: 10 mg Furosemide (Lasix -) 40 mg PO BID@0600,1400 [facility] Last Admin: 01/05/19 06:24 Dose: 40 mg Glipizide (Glucotrol Xl -) 10 mg PO BIDI [facility] Last Admin: 01/05/19 06:24 Dose: 10 mg Guaifenesin (Robitussin Dm -) 10 ml PO Q6H PRN PRN Reason: COUGH Last Admin: 01/04/19 21:59 Dose: 10 ml Heparin Sodium (Porcine) (Heparin -) 5,000 unit SQ BID [facility] Last Admin: 01/05/19 09:51 Dose: 5,000 unit Piperacillin Sod/Tazobactam (Sod 3.375 gm/ Dextrose) 50 mls @ 100 mls/hr IVPB Q8H-IV [facility]; Protocol Last Admin: 01/05/19 09:50 Dose: 100 mls/hr Losartan Potassium (Cozaar -) 100 mg PO DAILY [facility] Last Admin: 01/05/19 09:50 Dose: 100 mg Metformin HCl (Glucophage -) 500 mg PO BIDAC [facility] Last Admin: 01/05/19 06:23 Dose: 500 mg Rosuvastatin Calcium (Crestor -) 10 mg PO DAILY [facility] Last Admin: 01/05/19 09:50 Dose: 10 mg Silver Sulfadiazine (Silvadene -) 1 applic TP DAILY [facility] Last Admin: 01/04/19 10:20 Dose: 1 appful Spironolactone (Aldactone -) 25 mg PO DAILY [facility] Last Admin: 01/05/19 09:51 Dose: 25 mg - Objective Vital Signs: Vital Signs Temperature 97.5 F L 01/05/19 06:00 Pulse Rate 68 01/05/19 06:00 Respiratory Rate 20 01/05/19 06:00 Blood Pressure 143/70 01/05/19 06:00 O2 Sat by Pulse Oximetry (%) 100 01/04/19 21:00 Constitutional: Yes: Well Nourished, Calm Eyes: Yes: WNL HENT: Yes: WNL Neck: Yes: WNL Cardiovascular: Yes: Regular Rate and Rhythm, S1, S2 Respiratory: Yes: Diminished Gastrointestinal: Yes: Normal Bowel Sounds, Soft Extremities: Yes: WNL Edema: Yes Labs: CBC, BMP 01/04/19 13:30 Assessment/Plan Problem List - Problems (1) Ovarian cancer Code(s): C56.9 - MALIGNANT NEOPLASM OF UNSPECIFIED OVARY (2) Mediastinal adenopathy Code(s): R59.0 - LOCALIZED ENLARGED LYMPH NODES (3) Morbid obesity Code(s): E66.01 - MORBID (SEVERE) OBESITY DUE TO EXCESS CALORIES (4) Diabetes Code(s): E11.9 - TYPE 2 DIABETES MELLITUS WITHOUT COMPLICATIONS Qualifiers: Diabetes mellitus type: type 2 (5) HTN (hypertension) Code(s): I10 - ESSENTIAL (PRIMARY) HYPERTENSION Qualifiers: Hypertension type: essential hypertension Qualified Code(s): I10 - Essential (primary) hypertension (6) Pulmonary edema Code(s): J81.1 - CHRONIC PULMONARY EDEMA Qualifiers: Chronicity: acute Qualified Code(s): J81.0 - Acute pulmonary edema (7) Shortness of breath Code(s): R06.02 - SHORTNESS OF BREATH (8) Tachycardia Code(s): R00.0 - TACHYCARDIA, UNSPECIFIED Assessment/Plan IMP: OSAS AHI 36.6 on sleep screen Do not not have a clinical suspicion of PE at this point dyspnea IV Lasix BD TX PRN ABX per ID O2 as needed Daily weights outpatient sleep studies DR CARBAJAL
[2019-01-05] MEDS: SILVER SULFADIAZINE 1% TOP CREAM 50 GM JAR TP SCH (16:47)
--- NOTE | 2019-01-05 17:58 | PN ---
Progress Note, Physician History of Present Illness: stable - Current Medication List Current Medications: Active Medications Albuterol/Ipratropium (Duoneb -) 1 amp NEB Q6H PRN PRN Reason: SHORTNESS OF BREATH Last Admin: 01/04/19 19:45 Dose: 1 amp Aspirin (Ecotrin -) 81 mg PO DAILY [facility] Last Admin: 01/05/19 09:51 Dose: 81 mg Carvedilol (Coreg -) 25 mg PO BID [facility] Last Admin: 01/05/19 09:51 Dose: 25 mg Fluoxetine HCl (Prozac -) 10 mg PO DAILY [facility] Last Admin: 01/05/19 09:51 Dose: 10 mg Furosemide (Lasix -) 40 mg PO BID@0600,1400 [facility] Last Admin: 01/05/19 14:52 Dose: 40 mg Glipizide (Glucotrol Xl -) 10 mg PO BIDI [facility] Last Admin: 01/05/19 17:04 Dose: 10 mg Guaifenesin (Robitussin Dm -) 10 ml PO Q6H PRN PRN Reason: COUGH Last Admin: 01/04/19 21:59 Dose: 10 ml Heparin Sodium (Porcine) (Heparin -) 5,000 unit SQ BID [facility] Last Admin: 01/05/19 09:51 Dose: 5,000 unit Piperacillin Sod/Tazobactam (Sod 3.375 gm/ Dextrose) 50 mls @ 100 mls/hr IVPB Q8H-IV [facility]; Protocol Last Admin: 01/05/19 17:04 Dose: 100 mls/hr Losartan Potassium (Cozaar -) 100 mg PO DAILY [facility] Last Admin: 01/05/19 09:50 Dose: 100 mg Metformin HCl (Glucophage -) 500 mg PO BIDAC [facility] Last Admin: 01/05/19 17:04 Dose: 500 mg Rosuvastatin Calcium (Crestor -) 10 mg PO DAILY [facility] Last Admin: 01/05/19 09:50 Dose: 10 mg Silver Sulfadiazine (Silvadene -) 1 applic TP DAILY [facility] Last Admin: 01/05/19 16:47 Dose: 1 applic Spironolactone (Aldactone -) 25 mg PO DAILY [facility] Last Admin: 01/05/19 09:51 Dose: 25 mg - Objective Vital Signs: Vital Signs Temperature 97.3 F L 01/05/19 14:07 Pulse Rate 67 01/05/19 14:07 Respiratory Rate 24 H 01/05/19 14:07 Blood Pressure 153/67 01/05/19 14:07 O2 Sat by Pulse Oximetry (%) 97 01/05/19 10:00 Constitutional: Yes: No Distress HENT: Yes: Atraumatic Neck: Yes: Supple Cardiovascular: Yes: Regular Rate and Rhythm Respiratory: Yes: CTA Bilaterally Gastrointestinal: Yes: Normal Bowel Sounds Extremities: Yes: Other (cellulitis b/l much improved) Edema: Yes Edema: LLE: 1+, RLE: 1+ Neurological: Yes: Alert, Oriented Labs: CBC, BMP 01/04/19 13:30 01/04/19 13:30 INR, PTT INR 1.02 (0.83-1.09) 12/29/18 16:02 Problem List - Problems (1) HTN (hypertension) Assessment/Plan: monitor continue home meds Code(s): I10 - ESSENTIAL (PRIMARY) HYPERTENSION Qualifiers: Hypertension type: essential hypertension Qualified Code(s): I10 - Essential (primary) hypertension (2) Diabetes Assessment/Plan: bgms home meds Code(s): E11.9 - TYPE 2 DIABETES MELLITUS WITHOUT COMPLICATIONS Qualifiers: Diabetes mellitus type: type 2 (3) Pulmonary edema Assessment/Plan: po lasix aldactone Code(s): J81.1 - CHRONIC PULMONARY EDEMA Qualifiers: Chronicity: acute Qualified Code(s): J81.0 - Acute pulmonary edema (4) Shortness of breath Assessment/Plan: much improved Code(s): R06.02 - SHORTNESS OF BREATH (5) Cellulitis Assessment/Plan: left leg no dvt on iv abx ID TO SEE PATIENT TOMORROW...IF NEEDED WILL ORDER PO ABX Code(s): L03.90 - CELLULITIS, UNSPECIFIED (6) DVT prophylaxis Code(s): IMP5772 - (7) Morbid obesity Code(s): E66.01 - MORBID (SEVERE) OBESITY DUE TO EXCESS CALORIES (8) Ovarian cancer Code(s): C56.9 - MALIGNANT NEOPLASM OF UNSPECIFIED OVARY
--- NOTE | 2019-01-05 18:33 | PN ---
Progress Note, Physician History of Present Illness: Exertinal shortness of breath, productive cough, peripheral edema and orthopnea improving with diuresis. LLE cellulitis improved in symptoms on abx course. - Current Medication List Current Medications: Active Medications Albuterol/Ipratropium (Duoneb -) 1 amp NEB Q6H PRN PRN Reason: SHORTNESS OF BREATH Last Admin: 01/04/19 19:45 Dose: 1 amp Aspirin (Ecotrin -) 81 mg PO DAILY [facility] Last Admin: 01/05/19 09:51 Dose: 81 mg Carvedilol (Coreg -) 25 mg PO BID [facility] Last Admin: 01/05/19 09:51 Dose: 25 mg Fluoxetine HCl (Prozac -) 10 mg PO DAILY [facility] Last Admin: 01/05/19 09:51 Dose: 10 mg Furosemide (Lasix -) 40 mg PO BID@0600,1400 [facility] Last Admin: 01/05/19 14:52 Dose: 40 mg Glipizide (Glucotrol Xl -) 10 mg PO BIDI [facility] Last Admin: 01/05/19 17:04 Dose: 10 mg Guaifenesin (Robitussin Dm -) 10 ml PO Q6H PRN PRN Reason: COUGH Last Admin: 01/04/19 21:59 Dose: 10 ml Heparin Sodium (Porcine) (Heparin -) 5,000 unit SQ BID [facility] Last Admin: 01/05/19 09:51 Dose: 5,000 unit Piperacillin Sod/Tazobactam (Sod 3.375 gm/ Dextrose) 50 mls @ 100 mls/hr IVPB Q8H-IV [facility]; Protocol Last Admin: 01/05/19 17:04 Dose: 100 mls/hr Losartan Potassium (Cozaar -) 100 mg PO DAILY [facility] Last Admin: 01/05/19 09:50 Dose: 100 mg Metformin HCl (Glucophage -) 500 mg PO BIDAC [facility] Last Admin: 01/05/19 17:04 Dose: 500 mg Rosuvastatin Calcium (Crestor -) 10 mg PO DAILY [facility] Last Admin: 01/05/19 09:50 Dose: 10 mg Silver Sulfadiazine (Silvadene -) 1 applic TP DAILY [facility] Last Admin: 01/05/19 16:47 Dose: 1 applic Spironolactone (Aldactone -) 25 mg PO DAILY [facility] Last Admin: 01/05/19 09:51 Dose: 25 mg - Objective Vital Signs: Vital Signs Temperature 97.3 F L 01/05/19 14:07 Pulse Rate 67 01/05/19 14:07 Respiratory Rate 24 H 01/05/19 14:07 Blood Pressure 153/67 01/05/19 14:07 O2 Sat by Pulse Oximetry (%) 97 01/05/19 10:00 Constitutional: Yes: No Distress, Calm Neck: Yes: Supple Cardiovascular: Yes: Regular Rate and Rhythm Respiratory: Yes: Regular, Diminished Gastrointestinal: Yes: Normal Bowel Sounds, Soft, Abdomen, Obese Edema: Yes Edema: LLE: 1+, RLE: 1+ Labs: CBC, BMP 01/04/19 13:30 01/04/19 13:30 INR, PTT INR 1.02 (0.83-1.09) 12/29/18 16:02 Problem List - Problems (1) Diabetes Code(s): E11.9 - TYPE 2 DIABETES MELLITUS WITHOUT COMPLICATIONS Qualifiers: Diabetes mellitus type: type 2 (2) HTN (hypertension) Code(s): I10 - ESSENTIAL (PRIMARY) HYPERTENSION Qualifiers: Hypertension type: essential hypertension Qualified Code(s): I10 - Essential (primary) hypertension (3) Pulmonary edema Code(s): J81.1 - CHRONIC PULMONARY EDEMA Qualifiers: Chronicity: acute Qualified Code(s): J81.0 - Acute pulmonary edema (4) Shortness of breath Code(s): R06.02 - SHORTNESS OF BREATH (5) Acute on chronic diastolic (congestive) heart failure Code(s): I50.33 - ACUTE ON CHRONIC DIASTOLIC (CONGESTIVE) HEART FAILURE (6) AMAYA (obstructive sleep apnea) Code(s): G47.33 - OBSTRUCTIVE SLEEP APNEA (ADULT) (PEDIATRIC) Assessment/Plan Echo: Normal LV and RV size and fxn, mild LAE, mild MR, TR, mild ELADIO 15.5 mmHg, ELADIO 1.2 cm^2 1. Acute on chronic diastolic heart failure with pulmonary edema resolving 2. Hypertensive cardiomyopathy 3. Type 2 DM not at goal control 4. Hyperlipidemia 5. LLE cellulitis 6. PSVT->NSR 7. Demand ischemia 8. OSAS AHI 36.6 on sleep screen P:1. Oral diuresis (Lasix 40 bid, increase Aldactone 50 QD) with monitor diuretic response, renal fxn and electrolytes 2. Continue ASA 81 qd, carvedilol 25 bid, Crestor 10 qd, and losartan 100 qd 3. Tropns downtrending 4. Abx course for LLE cellulitis, wound care 5. DVT prophylaxis 6. Outpatient sleep studies, PFTs
[2019-01-05] MEDS: guaiFENesin/D-METHORPHAN HB 10 ML UNIT-DOSE CUPS PO PRN (22:02)
[2019-01-06] MEDS ORDERED: PIPERACILLIN/TAZOBACTAM 3.375 GM VIAL IVPB ONE ×3 (00:49→17:10)
[2019-01-06] MEDS ORDERED: DEXTROSE 5%-WATER - 50 ML IVPB ONE ×3 (00:49→17:10)
[2019-01-06] MEDS: PIPERACILLIN/TAZOB 3.375 GM 3.375 GM in DEXTROSE 5%-WATER - 50 ML IVPB SCH ×3 (02:06→17:12)
[2019-01-06] MEDS ORDERED: PT OWN MED DRAWER 7, Y5N ONE ×3 (05:31→16:44)
[2019-01-06] MEDS: metFORMIN HCL 500 MG TABLET (FP) PO SCH ×2 (06:22→16:46)
[2019-01-06] MEDS: FUROSEMIDE 40 MG TABLET (FP) PO SCH ×2 (06:22→13:31)
[2019-01-06] MEDS: glipiZIDE-XL 10 MG TAB.ER.24 (FP) PO SCH ×2 (06:22→16:46)
[2019-01-06] MEDS: FLUoxetine HCL 10 MG CAPSULE (FP) PO SCH (09:21)
[2019-01-06] MEDS: LOSARTAN POTASSIUM 50 MG TABLET (FP) PO SCH (09:21)
[2019-01-06] MEDS: CARVEDILOL 12.5 MG TABLET (FP) PO SCH ×2 (09:21→21:37)
[2019-01-06] MEDS: ASPIRIN COATED 81 MG TABLET.EC PO SCH (09:21)
[2019-01-06] MEDS: HEPARIN NA (PORCINE) 5,000 UNITS/ML 1ML VIAL SQ SCH ×2 (09:21→21:37)
[2019-01-06] MEDS: ROSUVASTATIN CA 10 MG TABLET (FP) PO SCH (09:21)
[2019-01-06] MEDS: SPIRONOLACTONE 25 MG TABLET (FP) PO SCH (09:21)
--- NOTE | 2019-01-06 09:57 | PN ---
Progress Note (short form) - Note Progress Note: PULMONARY Denies shortness of breath, chest pain, cough or wheezing. Leg swelling improving. Vital Signs Period Temp Pulse Resp BP Sys/Rivera Pulse Ox Last 24 Hr 97.3 F-98.1 F 61-72 18-24 120-154/67-89 97-97 Gen: NAD at rest Heart: RRR Lung: decreased breath sounds at the bases Abd: soft, nontender Ext: + edema CBC, BMP 01/04/19 13:30 01/04/19 13:30 Active Medications Albuterol/Ipratropium (Duoneb -) 1 amp NEB Q6H PRN PRN Reason: SHORTNESS OF BREATH Last Admin: 01/04/19 19:45 Dose: 1 amp Aspirin (Ecotrin -) 81 mg PO DAILY [facility] Last Admin: 01/06/19 09:21 Dose: 81 mg Carvedilol (Coreg -) 25 mg PO BID [facility] Last Admin: 01/06/19 09:21 Dose: 25 mg Fluoxetine HCl (Prozac -) 10 mg PO DAILY [facility] Last Admin: 01/06/19 09:21 Dose: 10 mg Furosemide (Lasix -) 40 mg PO BID@0600,1400 [facility] Last Admin: 01/06/19 06:22 Dose: 40 mg Glipizide (Glucotrol Xl -) 10 mg PO BIDI [facility] Last Admin: 01/06/19 06:22 Dose: 10 mg Guaifenesin (Robitussin Dm -) 10 ml PO Q6H PRN PRN Reason: COUGH Last Admin: 01/05/19 22:02 Dose: 10 ml Heparin Sodium (Porcine) (Heparin -) 5,000 unit SQ BID [facility] Last Admin: 01/06/19 09:21 Dose: 5,000 unit Piperacillin Sod/Tazobactam (Sod 3.375 gm/ Dextrose) 50 mls @ 100 mls/hr IVPB Q8H-IV [facility]; Protocol Last Admin: 01/06/19 09:22 Dose: 100 mls/hr Losartan Potassium (Cozaar -) 100 mg PO DAILY [facility] Last Admin: 01/06/19 09:21 Dose: 100 mg Metformin HCl (Glucophage -) 500 mg PO BIDAC [facility] Last Admin: 01/06/19 06:22 Dose: 500 mg Rosuvastatin Calcium (Crestor -) 10 mg PO DAILY [facility] Last Admin: 01/06/19 09:21 Dose: 10 mg Silver Sulfadiazine (Silvadene -) 1 applic TP DAILY [facility] Last Admin: 01/05/19 16:47 Dose: 1 applic Spironolactone (Aldactone -) 50 mg PO DAILY [facility] Last Admin: 01/06/19 09:21 Dose: 50 mg A/P Acute on Chronic Diastolic Heart Failure CAD +Troponins likely Demand Ischemia Cellulitis DM Hyperlipidemia Suspect AMAYA - continue lasix - monitor urine output, creatinine - daily weights - continue antibiotics - O2 to keep SpO2 >90% - check ambulatory SpO2 on room air to assess for home O2 - inhaled brnochodilators - outpt PFTs, PSG - DVT prophylaxis - d/c planning
[2019-01-06] MEDS: SILVER SULFADIAZINE 1% TOP CREAM 50 GM JAR TP SCH (11:13)
--- NOTE | 2019-01-06 11:50 | PN ---
Progress Note, Physician History of Present Illness: leg improving no complaints still draining - Current Medication List Current Medications: Active Medications Albuterol/Ipratropium (Duoneb -) 1 amp NEB Q6H PRN PRN Reason: SHORTNESS OF BREATH Last Admin: 01/04/19 19:45 Dose: 1 amp Aspirin (Ecotrin -) 81 mg PO DAILY [facility] Last Admin: 01/06/19 09:21 Dose: 81 mg Carvedilol (Coreg -) 25 mg PO BID [facility] Last Admin: 01/06/19 09:21 Dose: 25 mg Fluoxetine HCl (Prozac -) 10 mg PO DAILY [facility] Last Admin: 01/06/19 09:21 Dose: 10 mg Furosemide (Lasix -) 40 mg PO BID@0600,1400 [facility] Last Admin: 01/06/19 06:22 Dose: 40 mg Glipizide (Glucotrol Xl -) 10 mg PO BIDI [facility] Last Admin: 01/06/19 06:22 Dose: 10 mg Guaifenesin (Robitussin Dm -) 10 ml PO Q6H PRN PRN Reason: COUGH Last Admin: 01/05/19 22:02 Dose: 10 ml Heparin Sodium (Porcine) (Heparin -) 5,000 unit SQ BID [facility] Last Admin: 01/06/19 09:21 Dose: 5,000 unit Piperacillin Sod/Tazobactam (Sod 3.375 gm/ Dextrose) 50 mls @ 100 mls/hr IVPB Q8H-IV [facility]; Protocol Last Admin: 01/06/19 09:22 Dose: 100 mls/hr Losartan Potassium (Cozaar -) 100 mg PO DAILY [facility] Last Admin: 01/06/19 09:21 Dose: 100 mg Metformin HCl (Glucophage -) 500 mg PO BIDAC [facility] Last Admin: 01/06/19 06:22 Dose: 500 mg Rosuvastatin Calcium (Crestor -) 10 mg PO DAILY [facility] Last Admin: 01/06/19 09:21 Dose: 10 mg Silver Sulfadiazine (Silvadene -) 1 applic TP DAILY [facility] Last Admin: 01/06/19 11:13 Dose: 1 applic Spironolactone (Aldactone -) 50 mg PO DAILY [facility] Last Admin: 01/06/19 09:21 Dose: 50 mg - Objective Vital Signs: Vital Signs Temperature 98.1 F 01/06/19 09:10 Pulse Rate 69 01/06/19 09:10 Respiratory Rate 18 01/06/19 09:10 Blood Pressure 154/69 01/06/19 09:10 O2 Sat by Pulse Oximetry (%) 91 L 01/06/19 10:00 Constitutional: Yes: No Distress, Calm Cardiovascular: Yes: Regular Rate and Rhythm Respiratory: Yes: Regular, CTA Bilaterally Gastrointestinal: Yes: Normal Bowel Sounds, Soft Musculoskeletal: Yes: WNL Extremities: Yes: Erythema (improving) Wound/Incision: Yes: Dressing Dry and Intact Neurological: Yes: Alert, Oriented Psychiatric: Yes: Alert, Oriented Labs: CBC, BMP 01/04/19 13:30 01/04/19 13:30 INR, PTT INR 1.02 (0.83-1.09) 12/29/18 16:02 Assessment/Plan Problem List - Problems (1) Diabetes Code(s): E11.9 - TYPE 2 DIABETES MELLITUS WITHOUT COMPLICATIONS Qualifiers: Diabetes mellitus type: type 2 (2) HTN (hypertension) Code(s): I10 - ESSENTIAL (PRIMARY) HYPERTENSION Qualifiers: Hypertension type: essential hypertension Qualified Code(s): I10 - Essential (primary) hypertension (3) Pulmonary edema Code(s): J81.1 - CHRONIC PULMONARY EDEMA Qualifiers: Chronicity: acute Qualified Code(s): J81.0 - Acute pulmonary edema (4) Shortness of breath Code(s): R06.02 - SHORTNESS OF BREATH (5) Tachycardia Code(s): R00.0 - TACHYCARDIA, UNSPECIFIED left leg cellulitis infected wound left leg plan continue current mgmt organisms noted rest as per the tem patient doing well continue abx will decide again after seeing the patients leg
--- NOTE | 2019-01-06 13:10 | PN ---
Progress Note, Physician History of Present Illness: Exertinal shortness of breath, productive cough, peripheral edema and orthopnea improving with diuresis. LLE cellulitis improved in symptoms on abx course. - Current Medication List Current Medications: Active Medications Albuterol/Ipratropium (Duoneb -) 1 amp NEB Q6H PRN PRN Reason: SHORTNESS OF BREATH Last Admin: 01/04/19 19:45 Dose: 1 amp Aspirin (Ecotrin -) 81 mg PO DAILY [facility] Last Admin: 01/06/19 09:21 Dose: 81 mg Carvedilol (Coreg -) 25 mg PO BID [facility] Last Admin: 01/06/19 09:21 Dose: 25 mg Fluoxetine HCl (Prozac -) 10 mg PO DAILY [facility] Last Admin: 01/06/19 09:21 Dose: 10 mg Furosemide (Lasix -) 40 mg PO BID@0600,1400 [facility] Last Admin: 01/06/19 06:22 Dose: 40 mg Glipizide (Glucotrol Xl -) 10 mg PO BIDI [facility] Last Admin: 01/06/19 06:22 Dose: 10 mg Guaifenesin (Robitussin Dm -) 10 ml PO Q6H PRN PRN Reason: COUGH Last Admin: 01/05/19 22:02 Dose: 10 ml Heparin Sodium (Porcine) (Heparin -) 5,000 unit SQ BID [facility] Last Admin: 01/06/19 09:21 Dose: 5,000 unit Piperacillin Sod/Tazobactam (Sod 3.375 gm/ Dextrose) 50 mls @ 100 mls/hr IVPB Q8H-[facility]; Protocol Last Admin: 01/06/19 09:22 Dose: 100 mls/hr Losartan Potassium (Cozaar -) 100 mg PO DAILY [facility] Last Admin: 01/06/19 09:21 Dose: 100 mg Metformin HCl (Glucophage -) 500 mg PO BIDAC [facility] Last Admin: 01/06/19 06:22 Dose: 500 mg Rosuvastatin Calcium (Crestor -) 10 mg PO DAILY [facility] Last Admin: 01/06/19 09:21 Dose: 10 mg Silver Sulfadiazine (Silvadene -) 1 applic TP DAILY [facility] Last Admin: 01/06/19 11:13 Dose: 1 applic Spironolactone (Aldactone -) 50 mg PO DAILY [facility] Last Admin: 01/06/19 09:21 Dose: 50 mg - Objective Vital Signs: Vital Signs Temperature 98.1 F 01/06/19 09:10 Pulse Rate 83 01/06/19 11:47 Respiratory Rate 18 01/06/19 09:10 Blood Pressure 154/69 01/06/19 09:10 O2 Sat by Pulse Oximetry (%) 95 01/06/19 11:47 Constitutional: Yes: No Distress, Calm Neck: Yes: Supple Cardiovascular: Yes: Regular Rate and Rhythm Respiratory: Yes: Regular, Diminished, On Nasal O2 Gastrointestinal: Yes: Normal Bowel Sounds, Soft, Abdomen, Obese Edema: Yes Edema: LLE: Trace, RLE: Trace Labs: CBC, BMP 01/04/19 13:30 01/04/19 13:30 INR, PTT INR 1.02 (0.83-1.09) 12/29/18 16:02 Problem List - Problems (1) Diabetes Code(s): E11.9 - TYPE 2 DIABETES MELLITUS WITHOUT COMPLICATIONS Qualifiers: Diabetes mellitus type: type 2 (2) HTN (hypertension) Code(s): I10 - ESSENTIAL (PRIMARY) HYPERTENSION Qualifiers: Hypertension type: essential hypertension Qualified Code(s): I10 - Essential (primary) hypertension (3) Pulmonary edema Code(s): J81.1 - CHRONIC PULMONARY EDEMA Qualifiers: Chronicity: acute Qualified Code(s): J81.0 - Acute pulmonary edema (4) Shortness of breath Code(s): R06.02 - SHORTNESS OF BREATH (5) Acute on chronic diastolic (congestive) heart failure Code(s): I50.33 - ACUTE ON CHRONIC DIASTOLIC (CONGESTIVE) HEART FAILURE (6) AMAYA (obstructive sleep apnea) Code(s): G47.33 - OBSTRUCTIVE SLEEP APNEA (ADULT) (PEDIATRIC) Assessment/Plan Echo: Normal LV and RV size and fxn, mild LAE, mild MR, TR, mild ELADIO 15.5 mmHg, ELADIO 1.2 cm^2 1. Acute on chronic diastolic heart failure with pulmonary edema resolving 2. Hypertensive cardiomyopathy 3. Type 2 DM not at goal control 4. Hyperlipidemia 5. LLE cellulitis 6. PSVT->NSR 7. Demand ischemia 8. OSAS AHI 36.6 on sleep screen P:1. Oral diuresis (Lasix 40 bid and Aldactone 50 QD) with monitor diuretic response, renal fxn and electrolytes 2. Continue ASA 81 qd, carvedilol 25 bid, Crestor 10 qd, and losartan 100 qd 3. Tropns downtrending 4. Abx course for LLE cellulitis, wound care 5. DVT prophylaxis 6. Outpatient sleep studies, PFTs, O2 to keep SpO2 >90% 7. D/c planning
--- NOTE | 2019-01-06 16:09 | PN ---
Progress Note, Physician - Current Medication List Current Medications: Active Medications Albuterol/Ipratropium (Duoneb -) 1 amp NEB Q6H PRN PRN Reason: SHORTNESS OF BREATH Last Admin: 01/04/19 19:45 Dose: 1 amp Aspirin (Ecotrin -) 81 mg PO DAILY [facility] Last Admin: 01/06/19 09:21 Dose: 81 mg Carvedilol (Coreg -) 25 mg PO BID [facility] Last Admin: 01/06/19 09:21 Dose: 25 mg Fluoxetine HCl (Prozac -) 10 mg PO DAILY [facility] Last Admin: 01/06/19 09:21 Dose: 10 mg Furosemide (Lasix -) 40 mg PO BID@0600,1400 [facility] Last Admin: 01/06/19 13:31 Dose: 40 mg Glipizide (Glucotrol Xl -) 10 mg PO BIDI [facility] Last Admin: 01/06/19 06:22 Dose: 10 mg Guaifenesin (Robitussin Dm -) 10 ml PO Q6H PRN PRN Reason: COUGH Last Admin: 01/05/19 22:02 Dose: 10 ml Heparin Sodium (Porcine) (Heparin -) 5,000 unit SQ BID [facility] Last Admin: 01/06/19 09:21 Dose: 5,000 unit Piperacillin Sod/Tazobactam (Sod 3.375 gm/ Dextrose) 50 mls @ 100 mls/hr IVPB Q8H-[facility]; Protocol Last Admin: 01/06/19 09:22 Dose: 100 mls/hr Losartan Potassium (Cozaar -) 100 mg PO DAILY [facility] Last Admin: 01/06/19 09:21 Dose: 100 mg Metformin HCl (Glucophage -) 500 mg PO BIDAC [facility] Last Admin: 01/06/19 06:22 Dose: 500 mg Rosuvastatin Calcium (Crestor -) 10 mg PO DAILY [facility] Last Admin: 01/06/19 09:21 Dose: 10 mg Silver Sulfadiazine (Silvadene -) 1 applic TP DAILY [facility] Last Admin: 01/06/19 11:13 Dose: 1 applic Spironolactone (Aldactone -) 50 mg PO DAILY [facility] Last Admin: 01/06/19 09:21 Dose: 50 mg - Objective Vital Signs: Vital Signs Temperature 97.4 F L 01/06/19 14:54 Pulse Rate 67 01/06/19 14:54 Respiratory Rate 24 H 01/06/19 14:54 Blood Pressure 143/57 L 01/06/19 14:54 O2 Sat by Pulse Oximetry (%) 95 01/06/19 11:47 Constitutional: Yes: No Distress HENT: Yes: Atraumatic Neck: Yes: Supple Cardiovascular: Yes: Regular Rate and Rhythm Respiratory: Yes: CTA Bilaterally Gastrointestinal: Yes: Normal Bowel Sounds Extremities: Yes: Other (b/l tad cellulitis...ozing from left leg) Neurological: Yes: Alert, Oriented Labs: CBC, BMP 01/04/19 13:30 01/04/19 13:30 INR, PTT INR 1.02 (0.83-1.09) 12/29/18 16:02 Problem List - Problems (1) HTN (hypertension) Assessment/Plan: monitor continue home meds Code(s): I10 - ESSENTIAL (PRIMARY) HYPERTENSION Qualifiers: Hypertension type: essential hypertension Qualified Code(s): I10 - Essential (primary) hypertension (2) Diabetes Assessment/Plan: bgms home meds Code(s): E11.9 - TYPE 2 DIABETES MELLITUS WITHOUT COMPLICATIONS Qualifiers: Diabetes mellitus type: type 2 (3) Pulmonary edema Assessment/Plan: po lasix aldactone Code(s): J81.1 - CHRONIC PULMONARY EDEMA Qualifiers: Chronicity: acute Qualified Code(s): J81.0 - Acute pulmonary edema (4) Shortness of breath Code(s): R06.02 - SHORTNESS OF BREATH (5) Cellulitis Assessment/Plan: left leg no dvt on iv abx ID TO SEE PATIENT TOMORROW...IF NEEDED WILL ORDER PO ABX Code(s): L03.90 - CELLULITIS, UNSPECIFIED (6) DVT prophylaxis Code(s): [id number] - (7) Morbid obesity Code(s): E66.01 - MORBID (SEVERE) OBESITY DUE TO EXCESS CALORIES (8) Ovarian cancer Code(s): C56.9 - MALIGNANT NEOPLASM OF UNSPECIFIED OVARY
[2019-01-06] MEDS: ALBUTEROL SO4 2.5/IPRATROPIUM 0.5 INH SOL 3 ML VIAL.NEB. NEB PRN (19:58)
[2019-01-06] MEDS: guaiFENesin/D-METHORPHAN HB 10 ML UNIT-DOSE CUPS PO PRN (21:37)
[2019-01-07] MEDS ORDERED: PIPERACILLIN/TAZOBACTAM 3.375 GM VIAL IVPB ONE ×2 (01:26→07:11)
[2019-01-07] MEDS ORDERED: DEXTROSE 5%-WATER - 50 ML IVPB ONE ×2 (01:26→07:11)
[2019-01-07] MEDS: PIPERACILLIN/TAZOB 3.375 GM 3.375 GM in DEXTROSE 5%-WATER - 50 ML IVPB SCH ×2 (02:31→09:05)
[2019-01-07] MEDS: metFORMIN HCL 500 MG TABLET (FP) PO SCH (06:40)
[2019-01-07] MEDS: FUROSEMIDE 40 MG TABLET (FP) PO SCH ×2 (06:40→13:24)
[2019-01-07] MEDS: glipiZIDE-XL 10 MG TAB.ER.24 (FP) PO SCH (06:40)
[2019-01-07] MEDS: HEPARIN NA (PORCINE) 5,000 UNITS/ML 1ML VIAL SQ SCH (09:05)
[2019-01-07] MEDS: ASPIRIN COATED 81 MG TABLET.EC PO SCH (09:48)
[2019-01-07] MEDS: ROSUVASTATIN CA 10 MG TABLET (FP) PO SCH (09:48)
[2019-01-07] MEDS: CARVEDILOL 12.5 MG TABLET (FP) PO SCH (09:48)
[2019-01-07] MEDS: SPIRONOLACTONE 25 MG TABLET (FP) PO SCH (09:48)
[2019-01-07] MEDS: LOSARTAN POTASSIUM 50 MG TABLET (FP) PO SCH (09:48)
[2019-01-07] MEDS ORDERED: PT OWN MED DRAWER 7, Y5N ONE (09:50)
[2019-01-07] MEDS: FLUoxetine HCL 10 MG CAPSULE (FP) PO SCH (09:51)
--- NOTE | 2019-01-07 10:06 | PN ---
Progress Note, Physician - Current Medication List Current Medications: Active Medications Albuterol/Ipratropium (Duoneb -) 1 amp NEB Q6H PRN PRN Reason: SHORTNESS OF BREATH Last Admin: 01/06/19 19:58 Dose: 1 amp Aspirin (Ecotrin -) 81 mg PO DAILY [facility] Last Admin: 01/07/19 09:48 Dose: 81 mg Carvedilol (Coreg -) 25 mg PO BID [facility] Last Admin: 01/07/19 09:48 Dose: 25 mg Fluoxetine HCl (Prozac -) 10 mg PO DAILY [facility] Last Admin: 01/07/19 09:51 Dose: 10 mg Furosemide (Lasix -) 40 mg PO BID@0600,1400 [facility] Last Admin: 01/07/19 06:40 Dose: 40 mg Glipizide (Glucotrol Xl -) 10 mg PO BIDI [facility] Last Admin: 01/07/19 06:40 Dose: 10 mg Guaifenesin (Robitussin Dm -) 10 ml PO Q6H PRN PRN Reason: COUGH Last Admin: 01/06/19 21:37 Dose: 10 ml Heparin Sodium (Porcine) (Heparin -) 5,000 unit SQ BID [facility] Last Admin: 01/07/19 09:05 Dose: 5,000 unit Piperacillin Sod/Tazobactam (Sod 3.375 gm/ Dextrose) 50 mls @ 100 mls/hr IVPB Q8H-[facility]; Protocol Last Admin: 01/07/19 09:05 Dose: 100 mls/hr Losartan Potassium (Cozaar -) 100 mg PO DAILY [facility] Last Admin: 01/07/19 09:48 Dose: 100 mg Metformin HCl (Glucophage -) 500 mg PO BIDAC [facility] Last Admin: 01/07/19 06:40 Dose: 500 mg Rosuvastatin Calcium (Crestor -) 10 mg PO DAILY [facility] Last Admin: 01/07/19 09:48 Dose: 10 mg Silver Sulfadiazine (Silvadene -) 1 applic TP DAILY [facility] Last Admin: 01/06/19 11:13 Dose: 1 applic Spironolactone (Aldactone -) 50 mg PO DAILY [facility] Last Admin: 01/07/19 09:48 Dose: 50 mg - Objective Vital Signs: Vital Signs Temperature 97.8 F 01/07/19 10:02 Pulse Rate 68 01/07/19 10:02 Respiratory Rate 16 01/07/19 10:02 Blood Pressure 123/56 L 01/07/19 10:02 O2 Sat by Pulse Oximetry (%) 100 01/06/19 21:00 Constitutional: Yes: No Distress HENT: Yes: Atraumatic Neck: Yes: Supple Cardiovascular: Yes: Regular Rate and Rhythm Respiratory: Yes: CTA Bilaterally Gastrointestinal: Yes: Normal Bowel Sounds Extremities: Yes: Other (cellulitis b/l tad..beetr than yesterday) Neurological: Yes: Alert, Oriented Labs: CBC, BMP 01/04/19 13:30 01/04/19 13:30 INR, PTT INR 1.02 (0.83-1.09) 12/29/18 16:02 Problem List - Problems (1) HTN (hypertension) Code(s): I10 - ESSENTIAL (PRIMARY) HYPERTENSION Qualifiers: Hypertension type: essential hypertension Qualified Code(s): I10 - Essential (primary) hypertension (2) Diabetes Code(s): E11.9 - TYPE 2 DIABETES MELLITUS WITHOUT COMPLICATIONS Qualifiers: Diabetes mellitus type: type 2 (3) Pulmonary edema Code(s): J81.1 - CHRONIC PULMONARY EDEMA Qualifiers: Chronicity: acute Qualified Code(s): J81.0 - Acute pulmonary edema (4) Shortness of breath Code(s): R06.02 - SHORTNESS OF BREATH (5) Cellulitis Code(s): L03.90 - CELLULITIS, UNSPECIFIED (6) DVT prophylaxis Code(s): [id number] - (7) Morbid obesity Code(s): E66.01 - MORBID (SEVERE) OBESITY DUE TO EXCESS CALORIES (8) Ovarian cancer Code(s): C56.9 - MALIGNANT NEOPLASM OF UNSPECIFIED OVARY
[2019-01-07] MEDS: SILVER SULFADIAZINE 1% TOP CREAM 50 GM JAR TP SCH (13:05)
--- NOTE | 2019-01-07 13:13 | DS ---
Physical Examination Vital Signs: Vital Signs Temperature 97.8 F 01/07/19 10:02 Pulse Rate 68 01/07/19 10:02 Respiratory Rate 16 01/07/19 10:02 Blood Pressure 123/56 L 01/07/19 10:02 O2 Sat by Pulse Oximetry (%) 100 01/07/19 09:00 Constitutional: Yes: No Distress HENT: Yes: Atraumatic Neck: Yes: Supple Cardiovascular: Yes: Regular Rate and Rhythm Respiratory: Yes: CTA Bilaterally Gastrointestinal: Yes: Normal Bowel Sounds Extremities: Yes: Other (b/l tad cellulitis improving) Neurological: Yes: Alert, Oriented Labs: CBC, BMP 01/04/19 13:30 01/04/19 13:30 Discharge Summary Reason For Visit: SOB/PULMONARY EDEMA/TACHYCARDIA Current Active Problems Acute on chronic diastolic (congestive) heart failure (Acute) Cellulitis (Acute) DVT prophylaxis (Acute) Diabetes (Acute) HTN (hypertension) (Acute) Mediastinal adenopathy (Acute) Morbid obesity (Acute) AMAYA (obstructive sleep apnea) (Acute) Ovarian cancer (Acute) Pulmonary edema (Acute) Shortness of breath (Acute) Tachycardia (Acute) Condition: Stable - Instructions Referrals: Radha Hardy MD [Staff Physician] - Disposition: HOME - Home Medications Comprehensive Discharge Medication List: Ambulatory Orders Aspirin Coated [Ecotrin -] 81 mg PO DAILY 09/30/12 Fluoxetine HCl [Prozac -] 10 mg PO DAILY 09/30/12 Glipizide [Glipizide ER] 10 mg PO BID 09/30/12 Rosuvastatin Calcium [Crestor] 10 mg PO DAILY 09/30/12 metFORMIN HCL [Glucophage -] 500 mg PO BID 09/30/12 Carvedilol [Coreg -] 25 mg PO BID #60 tablet 01/05/19 Furosemide [Lasix -] 40 mg PO BID@0600,1400 #60 tablet 01/05/19 Losartan Potassium [Cozaar -] 100 mg PO DAILY #60 tablet 01/05/19 Spironolactone [Aldactone -] 25 mg PO DAILY #30 tablet 01/05/19 [place] home
--- NOTE | 2019-01-07 15:00 | PN ---
Progress Note, Physician History of Present Illness: stable leg looks better still red but much better - Current Medication List Current Medications: Active Medications Albuterol/Ipratropium (Duoneb -) 1 amp NEB Q6H PRN PRN Reason: SHORTNESS OF BREATH Last Admin: 01/06/19 19:58 Dose: 1 amp Amoxicillin/Clavulanate Potassium (Augmentin - 875mg Tablet) 1 tab PO BID@0800, 1730 [facility] Aspirin (Ecotrin -) 81 mg PO DAILY [facility] Last Admin: 01/07/19 09:48 Dose: 81 mg Carvedilol (Coreg -) 25 mg PO BID [facility] Last Admin: 01/07/19 09:48 Dose: 25 mg Fluoxetine HCl (Prozac -) 10 mg PO DAILY [facility] Last Admin: 01/07/19 09:51 Dose: 10 mg Furosemide (Lasix -) 40 mg PO BID@0600,1400 [facility] Last Admin: 01/07/19 13:24 Dose: 40 mg Glipizide (Glucotrol Xl -) 10 mg PO BIDI [facility] Last Admin: 01/07/19 06:40 Dose: 10 mg Guaifenesin (Robitussin Dm -) 10 ml PO Q6H PRN PRN Reason: COUGH Last Admin: 01/06/19 21:37 Dose: 10 ml Heparin Sodium (Porcine) (Heparin -) 5,000 unit SQ BID [facility] Last Admin: 01/07/19 09:05 Dose: 5,000 unit Losartan Potassium (Cozaar -) 100 mg PO DAILY [facility] Last Admin: 01/07/19 09:48 Dose: 100 mg Metformin HCl (Glucophage -) 500 mg PO BIDAC [facility] Last Admin: 01/07/19 06:40 Dose: 500 mg Rosuvastatin Calcium (Crestor -) 10 mg PO DAILY [facility] Last Admin: 01/07/19 09:48 Dose: 10 mg Silver Sulfadiazine (Silvadene -) 1 applic TP DAILY [facility] Last Admin: 01/06/19 11:13 Dose: 1 applic Spironolactone (Aldactone -) 50 mg PO DAILY [facility] Last Admin: 01/07/19 09:48 Dose: 50 mg - Objective Vital Signs: Vital Signs Temperature 97.8 F 01/07/19 10:02 Pulse Rate 68 01/07/19 10:02 Respiratory Rate 16 01/07/19 10:02 Blood Pressure 123/56 L 04/26/19 10:02 O2 Sat by Pulse Oximetry (%) 100 01/07/19 09:00 Constitutional: Yes: No Distress, Calm Cardiovascular: Yes: S1, S2 Respiratory: Yes: Regular, CTA Bilaterally Gastrointestinal: Yes: Normal Bowel Sounds, Soft Musculoskeletal: Yes: WNL Extremities: Yes: Erythema, Other Neurological: Yes: Alert, Oriented Psychiatric: Yes: Alert, Oriented Labs: CBC, BMP 01/04/19 13:30 01/04/19 13:30 INR, PTT INR 1.02 (0.83-1.09) 12/29/18 16:02 Assessment/Plan Problem List - Problems (1) Diabetes Code(s): E11.9 - TYPE 2 DIABETES MELLITUS WITHOUT COMPLICATIONS Qualifiers: Diabetes mellitus type: type 2 (2) HTN (hypertension) Code(s): I10 - ESSENTIAL (PRIMARY) HYPERTENSION Qualifiers: Hypertension type: essential hypertension Qualified Code(s): I10 - Essential (primary) hypertension (3) Pulmonary edema Code(s): J81.1 - CHRONIC PULMONARY EDEMA Qualifiers: Chronicity: acute Qualified Code(s): J81.0 - Acute pulmonary edema (4) Shortness of breath Code(s): R06.02 - SHORTNESS OF BREATH (5) Tachycardia Code(s): R00.0 - TACHYCARDIA, UNSPECIFIED left leg cellulitis infected wound left leg plan can go on augmentin 875mg po bod for 7 days and cefuroxime 500 mg po bid for 7 days leg care rest as per the team
[2019-01-07 15:12] VITALS: BP 151/71; PULSE 66; TEMP 98.2
[2019-01-07] MEDS ORDERED: AMOX TR/POT CLAV 875MG/125MG TABLETS (FP) PO SCH (17:30)
[2019-01-07] MEDS ORDERED: CEFUROXIME AXETIL 500 MG TABLET PO SCH (22:00)
== END 2019-01-07 15:53 | disposition home or self-care (01) | DRG 602 ==
LOC: JER 15:24 → JERBED 17:33 → J4W 21:19 → J5S 01-03 11:16
PROVIDERS: ADMIT Internal Medicine; ATTEND Internal Medicine
DX: L03.116 Cellulitis of left lower limb (principal); I50.33 Acute on chronic diastolic (congestive) heart failure; I24.8 Other forms of acute ischemic heart disease; Z68.41 Body mass index [BMI] 40.0-44.9, adult; I47.1 Supraventricular tachycardia; I43 Cardiomyopathy in diseases classified elsewhere; I11.0 Hypertensive heart disease with heart failure; E66.01 Morbid (severe) obesity due to excess calories; E11.9 Type 2 diabetes mellitus without complications; Z79.84 Long term (current) use of oral hypoglycemic drugs; Z85.43 Personal history of malignant neoplasm of ovary; E78.00 Pure hypercholesterolemia, unspecified; Z91.048 Other nonmedicinal substance allergy status; R59.0 Localized enlarged lymph nodes; G47.33 Obstructive sleep apnea (adult) (pediatric); S90.522A Blister (nonthermal), left ankle, initial encounter; X58.XXXA Exposure to other specified factors, initial encounter; Y93.89 Activity, other specified; Y92.89 Other specified places as the place of occurrence of the external cause; Y99.8 Other external cause status
CPT/HCPCS: 36415; 71045-TC-FY; 71046-TC-FY; 71250-TC; 73700-TC-RT; 80048; 80053; 80061; 82550; 82962; 83036; 83605; 83721; 83735; 83880; 84443; 84484; 85025; 85610; 85730; 86850; 86900; 86901; 87040; 87070; 87077; 87186; 87205; 93005; 93010; 93306-TC; 93971-TC; 94640; 94761; 99285-25; J1644